=== PATIENT | female | born 1970 | race Caucasian/White ===

== ENCOUNTER 2019-09-12 21:08 | Emergency (ER) | payer SELFPAY ==
[2019-09-12] MEDS ORDERED: ONDANSETRON 4 MG/2 ML VIAL ONE (21:43)
[2019-09-12] MEDS ORDERED: NA CHLORIDE 0.9% 1,000 ML ONE (21:43)
[2019-09-12] MEDS ORDERED: FENTANYL CITR 100 MCG/2 ML ONE (22:13)
[2019-09-12 22:28] LABS: Absolute Lymphocytes (CBC) 2.3 K/uL (0.7-4.9); Basophils % 2.3 % (0-1.3); Hematocrit 46.3 % (36.0-45.0); Lymphocytes % 35.1 % (15.3-44.8); MPV 9.9 fL (7.6-11.3); RBC Red Blood Cell Count 4.62 M/uL (3.86-4.86)
[2019-09-12 22:40] LABS: Albumin 4.3 g/dL (3.4-5.0); Bilirubin Direct 0.5 mg/dL (0-0.2); Bilirubin Total 1.1 mg/dL (0.2-1.0); Protein, Total 9.3 g/dL (6.4-8.2)
[2019-09-12 22:43] LABS: Potassium 2.9 mmol/L (3.5-5.1)
[2019-09-12] MEDS ORDERED: POTASSIUM 25 MEQ EFFERV TAB ONE (23:19)
[2019-09-12] MEDS ORDERED: PROMETHAZINE 25 MG/ML VIAL ONE (23:44)
[2019-09-13] MEDS ORDERED: FENTANYL CITR 100 MCG/2 ML ONE (01:04)
--- NOTE | 2019-09-13 01:35 | EDPHYS ---
Physician Documentation [facility] Name: Charmaine Hughes Age: 49 yrs Sex: Female : 1970 Arrival Date: 09/12/2019 Time: 21:09 Bed 7 Private MD: ED Physician Enrike Moya HPI: 09/12 22:04 This 49 yrs old Female presents to ER via Wheelchair with complaints of tw4 Vomiting. 22:04 The patient presents to the emergency department with nausea, that is mild, vomiting. tw4 Onset: The symptoms/episode began/occurred 3 day(s) ago. Possible causes: unknown. Severity of symptoms: At their worst the symptoms were mild in the emergency department the symptoms are unchanged. The patient has not experienced similar symptoms in the past. 22:04 The patient presents to the emergency department with diarrhea. The symptoms are tw4 aggravated by nothing. The symptoms are alleviated by nothing. 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 aj1 Historical: - Allergies: 21:17 Sulfa (Sulfonamide Antibiotics); aj1 22:52 Morphine; jb4 - Home Meds: 21:17 Cymbalta 60 mg Oral cpDR 1 cap once daily [Active]; dicyclomine 10 mg Oral cap 1 cap 3 aj1 times per day [Active]; estradiol 2 mg Oral tab 1 tab once daily [Active]; folic acid 1 mg Oral tab 1 tab once daily [Active]; levothyroxine 100 mcg tab 1 tab once daily [Active]; Prilosec 40 mg Oral cpDR 1 cap once daily [Active]; propranolol 10 mg Oral tab daily [Active]; - PMHx: 21:17 fatty liver disease; Hypothyroidism; aj1 - PSHx: 21:17 Gastric Bypass; Hysterectomy; aj1 - Immunization history:: Flu vaccine is not up to date. - Social history:: Smoking status: Patient/guardian denies using tobacco. - Ebola Screening: : Patient denies travel to an Ebola-affected area in the 21 days before illness onset. ROS: 22:04 Constitutional: Negative for fever, chills, and weight loss, Cardiovascular: Negative tw4 for chest pain, palpitations, and edema, Respiratory: Negative for shortness of breath, cough, wheezing, and pleuritic chest pain, Back: Negative for injury and pain, MS/Extremity: Negative for injury and deformity, Skin: Negative for injury, rash, and discoloration. 22:04 Abdomen/GI: Positive for abdominal pain, nausea and vomiting, nausea, vomiting, and diarrhea, nausea, vomiting, diarrhea. Exam: 22:04 Head/Face: Normocephalic, atraumatic. Chest/axilla: Normal chest wall appearance and tw4 motion. Nontender with no deformity. No lesions are appreciated. Cardiovascular: Regular rate and rhythm with a normal S1 and S2. No gallops, murmurs, or rubs. Normal PMI, no JVD. No pulse deficits. Respiratory: Lungs have equal breath sounds bilaterally, clear to auscultation and percussion. No rales, rhonchi or wheezes noted. No increased work of breathing, no retractions or nasal flaring. 22:04 Back: No spinal tenderness. No costovertebral tenderness. Full range of motion. Skin: Warm, dry with normal turgor. Normal color with no rashes, no lesions, and no evidence of cellulitis. MS/ Extremity: Pulses equal, no cyanosis. Neurovascular intact. Full, normal range of motion. Neuro: Awake and alert, GCS 15, oriented to person, place, time, and situation. Cranial nerves II-XII grossly intact. Motor strength 5/5 in all extremities. Sensory grossly intact. Cerebellar exam normal. Normal gait. 22:04 Constitutional: The patient appears in obvious distress, moderately distressed. 22:04 Abdomen/GI: Inspection: abdomen appears normal, Bowel sounds: diminished, Palpation: moderate abdominal tenderness, in the epigastric area. Vital Signs: 21:17 BP 109 / 77; Pulse 124; Resp 20; Temp 97.0; Pulse Ox 97% on R/A; Weight 90.72 kg (R); aj1 Height 5 ft. 10 in. (177.80 cm) (R); Pain 7/10; 22:15 BP 111 / 73; Pulse 109; Resp 16; Pulse Ox 99% on R/A; jb4 22:45 BP 106 / 61; Pulse 102; Resp 16; Pulse Ox 98% on R/A; jb4 09/13 00:00 BP 125 / 98; Pulse 107; Resp 16; Pulse Ox 97% on R/A; jb4 00:30 BP 127 / 86; Pulse 109; Resp 16; Pulse Ox 100% on R/A; jb4 02:00 BP 110 / 75; Pulse 112; Resp 18; Pulse Ox 98% on R/A; jb4 03:00 BP 132 / 94; Pulse 117; Resp 16; Pulse Ox 97% on R/A; jb4 09/12 21:17 Body Mass Index 28.70 (90.72 kg, 177.80 cm) aj1 MDM: 09/12 21:23 Patient medically screened. tw4 09/14 01:52 Differential diagnosis: Nonspecific abd pain, gastritis, cholecystitis. Data reviewed: tw4 vital signs, nurses notes. Data interpreted: Pulse oximetry: Interpretation: normal. Counseling: I had a detailed discussion with the patient and/or guardian regarding: the historical points, exam findings, and any diagnostic results supporting the discharge/admit diagnosis, lab results, radiology results. Response to treatment: the patient's symptoms have mildly improved after treatment, and as a result, I will admit patient. Special discussion:. 09/12 21:23 Order name: Basic Metabolic Panel; Complete Time: 22:48 tw4 09/12 22:48 Interpretation: Normal except: NA 132; CL 93; K 2.9; CO2 19; BUN 2; GFR 74. tw4 09/12 21:23 Order name: CBC with Diff; Complete Time: 22:48 tw4 09/12 22:48 Interpretation: Normal except: HGB 15.8; HCT 46.3; MCV 100.1; RDW 16.7. tw4 09/12 21:23 Order name: Creatinine for Radiology; Complete Time: 22:48 tw4 09/12 22:48 Interpretation: Within normal limits: CRE 0.84. tw4 09/12 21:23 Order name: Hepatic Function; Complete Time: 22:48 tw4 09/12 22:48 Interpretation: Normal except: AST 351; ALT 93; ALK 279; BILIT 1.1; BILID 0.5; TP 9.3; tw4 GLOB 5.0; A/G 0.9. 09/12 21:23 Order name: Lipase; Complete Time: 22:48 tw4 09/12 22:48 Interpretation: Normal except: LIP 809. tw4 09/12 23:25 Order name: Abdomen EDCO 09/12 21:23 Order name: IV Saline Lock; Complete Time: 21:37 tw4 09/12 21:23 Order name: Labs collected and sent; Complete Time: 21:37 tw4 Administered Medications: 09/12 22:07 Drug: NS 0.9% 1000 ml Route: IV; Rate: 1 bolus; Site: right antecubital; 4 09/13 00:00 Follow up: Response: No adverse reaction; IV Status: Completed infusion; IV Intake: jb4 1000ml 09/12 22:07 Drug: Zofran 4 mg Route: IVP; Site: right antecubital; 4 22:30 Follow up: Response: No adverse reaction; Nausea is decreased [facility] 22:19 Drug: fentaNYL (PF) 25 mcg Route: IVP; Site: right antecubital; 4 22:25 Follow up: Response: No adverse reaction; Pain is decreased; RASS: Alert and Calm (0) [facility] 23:49 Drug: Phenergan 25 mg Route: IM; Site: right gluteus; [facility] 09/13 00:15 Follow up: Response: No adverse reaction; Nausea is decreased [facility] 01:01 Drug: fentaNYL (PF) 50 mcg {Note: RASS 0.} Route: IVP; Site: left antecubital; 01:30 Follow up: Response: No adverse reaction; Pain is decreased; RASS: Alert and Calm (0) [facility] 01:44 Not Given (Patient Refused): Potassium Effervescent Tablet 50 mEq PO once; dissolve in jb 4 ounces of water or juice 02:09 Drug: Potassium Chloride 20 mEq Route: IV; Rate: calculated rate; Site: left 4 antecubital; 03:02 Follow up: Response: No adverse reaction; IV Status: Infusion continued upon transfer [facility] 02:09 Drug: NS 0.9% 1000 ml Route: IV; Rate: 1 bolus; Site: left antecubital; [facility] 03:02 Follow up: Response: No adverse reaction; IV Status: Infusion continued upon transfer [facility] 02:55 Drug: Dilaudid 1 mg {Note: Rass score 0.} Route: IVP; Site: left antecubital; [facility] 03:10 Follow up: Response: No adverse reaction; Pain is decreased; RASS: Alert and Calm (0) [facility] Disposition: 09/13/19 01:34 Transfer ordered to [facility]. Diagnosis are Acute pancreatitis, Pseudocyst of pancreas. - Reason for transfer: Higher level of care. - Accepting physician is Dr Green. - Condition is Stable. - Problem is new. - Symptoms are unchanged. Signatures: Dispatcher [employer] [facility] Shanti Vargas, RN RN aj1 Althea Block RN RN bb Norris Martinez RN RN jb4 Enrike Moya MD MD tw4 Corrections: (The following items were deleted from the chart) 09/12 23:25 21:54 Abdomen Pelvis W Con+CT.RAD.BRZ ordered. [facility] 09/13 03:20 01:34 09/13/2019 01:34 Transfer ordered to [facility]. Diagnosis is jb4 Acute pancreatitis; Pseudocyst of pancreas. Reason for transfer: Higher level of care. Accepting physician is Dr Green. Condition is Stable. Problem is new. Symptoms are unchanged. tw4
--- NOTE | 2019-09-13 01:35 | ER ---
Nurse's Notes [facility] Name: Charmaine Hughes Age: 49 yrs Sex: Female : 1970 Arrival Date: 09/12/2019 Time: 21:09 Bed 7 Private MD: Diagnosis: Acute pancreatitis;Pseudocyst of pancreas Presentation: 09/12 21:15 Presenting complaint: Patient states: "For the last 3 days I've been unable to eat, aj1 I've been throwing up a lot, a little bit of diarrhea. I'm feeling very very weak and having a lot of stomach pain" Denies fever. Transition of care: patient was not received from another setting of care. Onset of symptoms was September 12, 2019. Risk Assessment: Do you want to hurt yourself or someone else? Patient reports no desire to harm self or others. Initial Sepsis Screen: Does the patient meet any 2 criteria? HR > 90 bpm. No. Patient's initial sepsis screen is negative. Does the patient have a suspected source of infection? Yes: Acute abdominal pain. Care prior to arrival: None. 21:15 Method Of Arrival: Wheelchair aj1 21:15 Acuity: ALICE 3 aj1 Triage Assessment: 21:17 General: Appears in no apparent distress. uncomfortable, Behavior is calm, cooperative, aj1 appropriate for age. Pain: Complains of pain in right lower quadrant and left lower quadrant Pain currently is 7 out of 10 on a pain scale. Neuro: Level of Consciousness is awake, alert, obeys commands. Cardiovascular: Patient's skin is warm and dry. Respiratory: Airway is patent Respiratory effort is even, unlabored, Respiratory pattern is regular, symmetrical. GI: Reports diarrhea, nausea, vomiting. 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 aj1 Historical: - Allergies: 21:17 Sulfa (Sulfonamide Antibiotics); aj1 22:52 Morphine; jb4 - Home Meds: 21:17 Cymbalta 60 mg Oral cpDR 1 cap once daily [Active]; dicyclomine 10 mg Oral cap 1 cap 3 aj1 times per day [Active]; estradiol 2 mg Oral tab 1 tab once daily [Active]; folic acid 1 mg Oral tab 1 tab once daily [Active]; levothyroxine 100 mcg tab 1 tab once daily [Active]; Prilosec 40 mg Oral cpDR 1 cap once daily [Active]; propranolol 10 mg Oral tab daily [Active]; - PMHx: 21:17 fatty liver disease; Hypothyroidism; aj1 - PSHx: 21:17 Gastric Bypass; Hysterectomy; aj1 - Immunization history:: Flu vaccine is not up to date. - Social history:: Smoking status: Patient/guardian denies using tobacco. - Ebola Screening: : Patient denies travel to an Ebola-affected area in the 21 days before illness onset. Screenin:33 Abuse screen: Denies threats or abuse. Nutritional screening: No deficits noted. jb4 Tuberculosis screening: No symptoms or risk factors identified. Fall Risk None identified. Assessment: 21:33 General: Appears in no apparent distress. uncomfortable, Behavior is cooperative, jb4 appropriate for age, anxious. Pain: Complains of pain in abdomen Pain does not radiate. Pain currently is 7 out of 10 on a pain scale. Quality of pain is described as burning, aching, crampy, stabbing, Pain began 2-3 days ago. Is continuous. Neuro: Level of Consciousness is awake, alert, obeys commands, Oriented to person, place, time, situation. Cardiovascular: Patient's skin is warm and dry. Respiratory: Airway is patent Respiratory effort is even, unlabored, Respiratory pattern is regular, symmetrical. GI: Abdomen is non-distended, obese, Bowel sounds present X 4 quads. Abd is soft and non tender X 4 quads. Reports lower abdominal pain, cramping, nausea, vomiting, Patient currently denies constipation, diarrhea. : No deficits noted. No signs and/or symptoms were reported regarding the genitourinary system. EENT: No deficits noted. No signs and/or symptoms were reported regarding the EENT system. Derm: Skin is intact, Skin is pink, warm \\T\\ dry. Musculoskeletal: Circulation, motion, and sensation intact. Range of motion: intact in all extremities. 22:30 Reassessment: Patient appears in no apparent distress at this time. Patient and/or jb4 family updated on plan of care and expected duration. Pain level reassessed. Patient is alert, oriented x 3, equal unlabored respirations, skin warm/dry/pink. 23:31 Reassessment: Patient appears in no apparent distress at this time. Patient and/or jb4 family updated on plan of care and expected duration. Pain level reassessed. Patient is alert, oriented x 3, equal unlabored respirations, skin warm/dry/pink. PT to CT. 09/13 01:18 Reassessment: Dr Moya at bedside for discussion of findings and recommendations pt to bb be transferred to another hospital for higher level of care pt verbalized understanding of and agrees to plan of care. Pt is A\\T\\O x 4, resp unlabored, IV site intact, patent with fluids infusing. 02:00 Reassessment: Patient appears in no apparent distress at this time. Patient and/or jb4 family updated on plan of care and expected duration. Pain level reassessed. Patient is alert, oriented x 3, equal unlabored respirations, skin warm/dry/pink. 03:13 Reassessment: Patient appears in no apparent distress at this time. Patient and/or jb4 family updated on plan of care and expected duration. Pain level reassessed. Patient is alert, oriented x 3, equal unlabored respirations, skin warm/dry/pink. Pt transported to receiving facility via EMS. Vital Signs: 09/12 21:17 BP 109 / 77; Pulse 124; Resp 20; Temp 97.0; Pulse Ox 97% on R/A; Weight 90.72 kg (R); aj1 Height 5 ft. 10 in. (177.80 cm) (R); Pain 7/10; 22:15 BP 111 / 73; Pulse 109; Resp 16; Pulse Ox 99% on R/A; jb4 22:45 BP 106 / 61; Pulse 102; Resp 16; Pulse Ox 98% on R/A; jb4 09/13 00:00 BP 125 / 98; Pulse 107; Resp 16; Pulse Ox 97% on R/A; jb4 00:30 BP 127 / 86; Pulse 109; Resp 16; Pulse Ox 100% on R/A; jb4 02:00 BP 110 / 75; Pulse 112; Resp 18; Pulse Ox 98% on R/A; jb4 03:00 BP 132 / 94; Pulse 117; Resp 16; Pulse Ox 97% on R/A; jb4 09/12 21:17 Body Mass Index 28.70 (90.72 kg, 177.80 cm) aj1 ED Course: 09/12 21:09 Patient arrived in ED. ag3 21:16 Triage completed. aj1 21:17 Arm band placed on Patient placed in an exam room. aj1 21:21 Norris Martinez, RN is Primary Nurse. jb4 21:22 Enrike Moya MD is Attending Physician. tw4 21:33 Patient has correct armband on for positive identification. Placed in gown. Bed in low jb4 position. Call light in reach. Side rails up X 1. Pulse ox on. NIBP on. 22:01 Initial lab(s) drawn, by me, sent to lab. Inserted saline lock: 20 gauge in right bb antecubital area, using aseptic technique. Blood collected. 22:03 Basic Metabolic Panel Sent. ds4 22:04 CBC with Diff Sent. ds4 22:04 Creatinine for Radiology Sent. ds4 22:04 Hepatic Function Sent. ds4 22:04 Lipase Sent. ds4 22:34 Radiology exam delayed due to lab results not completed at this time. (BUN/Creatinine). mw3 22:50 Notified ED physician of a critical lab result(s). 2.9 K+, and [address] Moya ak1 notified. 23:10 Radiology exam delayed due to IV insertion attempt and/or patient not having mw3 appropriate IV at this time. 23:56 Abdomen In Process Unspecified. EDMS 09/13 01:02 Inserted saline lock: 18 gauge in left antecubital area, using aseptic technique. bb 01:20 Diet: Patient given ice chips. bb 03:13 No provider procedures requiring assistance completed. Patient transferred, IV remains jb4 in place. Administered Medications: 09/12 22:07 Drug: NS 0.9% 1000 ml Route: IV; Rate: 1 bolus; Site: right antecubital; jb4 09/13 00:00 Follow up: Response: No adverse reaction; IV Status: Completed infusion; IV Intake: jb4 1000ml 09/12 22:07 Drug: Zofran 4 mg Route: IVP; Site: right antecubital; jb4 22:30 Follow up: Response: No adverse reaction; Nausea is decreased jb4 22:19 Drug: fentaNYL (PF) 25 mcg Route: IVP; Site: right antecubital; jb4 22:25 Follow up: Response: No adverse reaction; Pain is decreased; RASS: Alert and Calm (0) jb4 23:49 Drug: Phenergan 25 mg Route: IM; Site: right gluteus; jb4 09/13 00:15 Follow up: Response: No adverse reaction; Nausea is decreased jb4 01:01 Drug: fentaNYL (PF) 50 mcg {Note: RASS 0.} Route: IVP; Site: left antecubital; bb 01:30 Follow up: Response: No adverse reaction; Pain is decreased; RASS: Alert and Calm (0) jb4 01:44 Not Given (Patient Refused): Potassium Effervescent Tablet 50 mEq PO once; dissolve in jb4 4 ounces of water or juice 02:09 Drug: Potassium Chloride 20 mEq Route: IV; Rate: calculated rate; Site: left jb antecubital; 03:02 Follow up: Response: No adverse reaction; IV Status: Infusion continued upon transfer jb4 02:09 Drug: NS 0.9% 1000 ml Route: IV; Rate: 1 bolus; Site: left antecubital; jb4 03:02 Follow up: Response: No adverse reaction; IV Status: Infusion continued upon transfer jb4 02:55 Drug: Dilaudid 1 mg {Note: Rass score 0.} Route: IVP; Site: left antecubital; jb4 03:10 Follow up: Response: No adverse reaction; Pain is decreased; RASS: Alert and Calm (0) jb4 Intake: 00:00 IV: 1000ml; Total: 1000ml. jb4 Outcome: 01:34 ER care complete, transfer ordered by . tw4 03:13 Transferred by [facility] to [facility], Transfer form completed. jb4 X-rays sent w/ patient. 03:13 Condition: stable 03:13 Discharge instructions given to patient, Instructed on the need for transfer, Demonstrated understanding of instructions. 03:20 Patient left the ED. jb4 Signatures: Dispatcher [employer] EDMS Shanti Vargas RN RN aj1 Althea Block RN RN Adan Badillo ds4 Ana M Evans RN RN ak1 Norris Martinez RN RN jb4 Enrike Moya MD MD tw4 Ana Post 3 Dulce Maria Banks 3
[2019-09-13] MEDS ORDERED: KCL 20 MEQ/100 mL IVPB 20 MEQ/100 ML BAG IV ONE (01:57)
[2019-09-13] MEDS ORDERED: NA CHLORIDE 0.9% 1,000 ML ONE (01:57)
[2019-09-13] MEDS ORDERED: HYDROMORPHONE HCL 1 MG/ML INJ ONE (02:48)
[2019-09-13 03:38] VITALS: TEMP 97
[2019-09-13 03:44] VITALS: BP 132/94; O2SAT 97
--- NOTE | 2019-09-13 11:36 | RAD REPORT ---
EXAM DESCRIPTION: CT ABDOMEN AND PELVIS WITHOUT CONTRAST CLINICAL HISTORY: Abdominal pain, nausea and vomiting. COMPARISON: Report from CT abdomen and pelvis with contrast 08/09/2019. TECHNIQUE: Axial unenhanced CT imaging of the abdomen and pelvis performed. Reformatted coronal and sagittal images reviewed. A dose reduction technique was utilized with automated exposure control according to patient size. FINDINGS: Heart is normal in size. There are very faint groundglass densities in the posterior media l right lower lobe subpleural parenchyma. No pleural fluid. The liver is enlarged to approximately 21 cm. There is significant decreased attenuation due to fatty infiltration. There is no liver mass or biliary dilatation. Gallbladder has been resected. Normal sp ivan and pancreas. Normal adrenal glands and kidneys. Aorta and inferior vena cava are normal in caliber. No retroperitoneal lymphadenopathy. There is evid ence of gastric bypass. There is a 6.6 x 4.8 x 3.9 cm well-circumscribed fluid collection within the left upper abdomen posterior to the proximal stomach adjacent to the spleen. No adjacent edema there is focal dilatation of a small bowel segment in the left abdomen up to 3.5 cm at the distal bypass an astomotic site without obstruction. Remaining small bowel loops appear normal. The appendix is surgic ally absent. Unremarkable colon. No mesenteric adenopathy. No ascites or free air. There is a ventral abdominal hernia mesh without recurrent hernia. The bladder appears normal. Uterus is surgically absent. No pelvic free fluid or adenopathy. There is a slight levoconvex lumbar curve. Mild L5/S1 diffuse disc bulge. Intact bony pelvis. Normal hips. IMPRESSION: 1. Status post gastric bypass. There is a 6.6 cm simple well-circumscribed fluid collect ion in the left upper abdomen posterior to the proximal excluded stomach. Differential includes posto perative seroma, pseudocyst, duplication cyst. No inflammatory changes to suggest an abscess. 2. Hepatomegaly with moderate steatosis. 3. Mild L5-S1 diffuse disc bulge. 4. Very faint subpleural groundglass densities posterior medial right lower lobe could represent a sm all focus of early pneumonitis. Electronically signed by: Mercedes Roy DO 09/13/2019 12:28 AM CDT Due to temporary technical issues with the PACS/Fluency reporting system, reports are being signed by the in house radiologist as a courtesy to ensure prompt reporting. The interpreting radiologist is f ully responsible for the content of the report.
== END 2019-09-13 03:20 | disposition short-term general hospital (02) ==
LOC: ER 21:08
DX: K85.90 Acute pancreatitis without necrosis or infection, unspecified (principal); K86.3 Pseudocyst of pancreas; Z88.2 Allergy status to sulfonamides; Z88.6 Allergy status to analgesic agent; E03.9 Hypothyroidism, unspecified
CPT/HCPCS: 36415; 74176; 80048; 80076; 83690; 85025; 96361; 96365; 96372; 96375; 99285; J1170; J2405; J2550; J3010; J7030

== ENCOUNTER 2019-10-15 04:35 | Emergency (ER) | payer SELFPAY ==
--- OUTSIDE RECORDS SUMMARY | 2019-10-15 04:37 | XMS REPORT ---
:1970 Author Organization [facility] Address [address] [place] [address] Care Team Providers Name Role Phone BRIAN GUPTA Unavailable Unavailable Problems This patient has no known problems. Allergies, Adverse Reactions, Alerts This patient has no known allergies or adverse reactions. Medications This patient has no known medications. Results Test Description Test Time Test Comments Text Results Atomic Results Result Comments MAGNESIUM 2019-09-15 06:09:00 Test Item Value Reference Range Comments MAGNESIUM (BEAKER) (test topv=525) 1.9 mg/dL 1.6-2.6 BASIC METABOLIC [id number] 06:09:00 Test Item Value Reference Range Comments SODIUM (BEAKER) (test 134 meq/L 136-145 fffs=346) POTASSIUM (BEAKER) (test 3.2 meq/L 3.5-5.1 uwrg=598) CHLORIDE (BEAKER) (test 95 meq/L 98-107 jslh=598) CO2 (BEAKER) (test 27 meq/L 22-29 rwsu=057) BLOOD UREA NITROGEN 3 mg/dL 7-21 (BEAKER) (test wzpe=341) CREATININE (BEAKER) (test 0.75 mg/dL 0.57-1.25 rsrc=711) GLUCOSE RANDOM (BEAKER) 94 mg/dL 70-105 (test pkqo=048) CALCIUM (BEAKER) (test 9.4 mg/dL 8.4-10.2 kgtq=356) EGFR (BEAKER) (test 82 mL/min/1.73 sq m ESTIMATED GFR IS NOT rfir=9636) ACCURATE CREATININE CLEARANCE IN PREDICTING GLOMERULAR FILTRATION RATE. ESTIMATED GFR IS NOT APPLICABLE FOR DIALYSIS PATIENTS. HEPATIC FUNCTION [id number] 06:09:00 Test Item Value Reference Range Comments TOTAL PROTEIN (BEAKER) (test fdyy=773) 7.2 gm/dL 6.0-8.3 ALBUMIN (BEAKER) (test oium=2816) 3.8 g/dL 3.5-5.0 BILIRUBIN TOTAL (BEAKER) (test psfs=558) 1.7 mg/dL 0.2-1.2 BILIRUBIN DIRECT (BEAKER) (test zukb=977) 1.0 mg/dL 0.1-0.5 ALKALINE PHOSPHATASE (BEAKER) (test gzdu=234) 174 U/L 40-150 AST (SGOT) (BEAKER) (test fjdq=921) 124 U/L 5-34 ALT (SGPT) (BEAKER) (test eapt=214) 41 U/L 6-55 MR, ABDOMEN, [id number] 23:05:00FINAL REPORT MRI of the abdomen, MRCP. CLINICAL HISTORY: Epigastric pain. Concern for pancreatic pseudocyst. MRCP to evaluate the rectal hyperbilirubinemia. COMPARISON STUDY: Ultrasound dated September 14, 2019. TECHNIQUE: Multiplanar, multisequence images of the abdomen were acquired both pre and post administration of intravenous gadolinium. 3-dimensional reconstructions were acquired and utilized by the dictating radiologist at the time of interpretation. FINDINGS: No pleuraleffusion is seen. The liver is markedly fatty in nature. Post administration of intravenous gadolinium in a dynamic fashion, no suspicious enhancing masses. However, portions of the liver are not imaged on the dynamic scan as a pancreatic protocol was performed. The portal vein is patent measuring 8 mm. The spleen, kidneys and adrenal glands are unremarkable. No focal pancreatic abnormality is seen. The tail is short in caliber. There is no evidence of pancreatitis, pancreatic mass or pancreatic pseudocyst. There are no dilated loops of bowel seen to suggest obstruction. No ascites is seen. There is no suspicious adenopathy. The aorta is normal in caliber. MRCP demonstrates postcholecystectomy changes. The CBD is normal in caliber measuring 5 mm. No choledocholithiasis is seen. No pancreatic ductal dilatation is identified. The visualized osseous structures demonstrate a levorotoscoliosis of thelumbar spine. IMPRESSION:1. Markedly fatty liver.2. Short pancreatic tail. No other focal pancreaticabnormality. No pseudocyst seen.3. Status post cholecystectomy with no evidence of biliary or pancreatic ductal dilatation. Signed: Yoshi Sesay MDReport Verified Date/Time: 2018 23:05:19 Reading Location: [facility] B1 [id number] Consult Reading Room [id number] 06:51:00 Test Item Value Reference Range Comments MAGNESIUM (BEAKER) (test ajqx=662) 2.0 mg/dL 1.6-2.6 BASIC METABOLIC [id number] 06:51:00 Test Item Value Reference Range Comments SODIUM (BEAKER) (test 134 meq/L 136-145 ivgc=312) POTASSIUM (BEAKER) (test 3.3 meq/L 3.5-5.1 upmg=958) CHLORIDE (BEAKER) (test 93 meq/L 98-107 arfb=917) CO2 (BEAKER) (test 27 meq/L 22-29 fxke=459) BLOOD UREA NITROGEN 3 mg/dL 7-21 (BEAKER) (test tukq=811) CREATININE (BEAKER) (test 0.81 mg/dL 0.57-1.25 rjbl=373) GLUCOSE RANDOM (BEAKER) 99 mg/dL 70-105 (test crqc=619) CALCIUM (BEAKER) (test 9.2 mg/dL 8.4-10.2 vimd=495) EGFR (BEAKER) (test 75 mL/min/1.73 sq m ESTIMATED GFR IS NOT qiur=2698) ACCURATE CREATININE CLEARANCE IN PREDICTING GLOMERULAR FILTRATION RATE. ESTIMATED GFR IS NOT APPLICABLE FOR DIALYSIS PATIENTS. LIPID [id number] 06:51:00 Test Item Value Reference Range Comments TRIGLYCERIDES (BEAKER) (test zrix=418) 90 mg/dL CHOLESTEROL (BEAKER) (test tahz=805) 227 mg/dL HDL CHOLESTEROL (BEAKER) (test hfis=807) 85 mg/dL LDL CHOLESTEROL CALCULATED (BEAKER) (test 124 mg/dL sihh=866) Triglyceride Reference Range: Low Risk <150 Borderline 150- 199 High Risk 200-499 Very High Risk >=500Cholesterol Reference Range: Low Risk <200 Borderline 200-239 High Risk > 240HDL Cholesterol Reference Range: Low Risk >=60 High Risk <40LDL Cholesterol Reference Range: Optimal <100 Near Optimal 100-129 Borderline 130-159 High 160-189 Very High >=190HEPATIC FUNCTION [id number] 06:51:00 Test Item Value Reference Range Comments TOTAL PROTEIN (BEAKER) (test vzcq=447) 7.0 gm/dL 6.0-8.3 ALBUMIN (BEAKER) (test deuj=5063) 3.9 g/dL 3.5-5.0 BILIRUBIN TOTAL (BEAKER) (test nbmc=315) 2.2 mg/dL 0.2-1.2 BILIRUBIN DIRECT (BEAKER) (test ujkg=750) 1.4 mg/dL 0.1-0.5 ALKALINE PHOSPHATASE (BEAKER) (test avni=116) 188 U/L 40-150 AST (SGOT) (BEAKER) (test kevk=299) 159 U/L 5-34 ALT (SGPT) (BEAKER) (test igyr=968) 52 U/L 6-55 CBC (HEMOGRAM ONLY)2019-09-14 05:02:00 Test Item Value Reference Range Comments WHITE BLOOD CELL COUNT (BEAKER) (test qiup=976) 5.5 K/ L 3.5-10.5 RED BLOOD CELL COUNT (BEAKER) (test fksx=885) 3.79 M/ L 3.93-5.22 HEMOGLOBIN (BEAKER) (test ejar=278) 12.6 GM/DL 11.2-15.7 HEMATOCRIT (BEAKER) (test tqrq=984) 37.7 % 34.1-44.9 MEAN CORPUSCULAR VOLUME (BEAKER) (test mnvw=442) 99.5 fL 79.4-94.8 MEAN CORPUSCULAR HEMOGLOBIN (BEAKER) (test 33.2 pg 25.6-32.2 eizb=105) MEAN CORPUSCULAR HEMOGLOBIN CONC (BEAKER) (test 33.4 GM/DL 32.2-35.5 xdns=885) RED CELL DISTRIBUTION WIDTH (BEAKER) (test 15.3 % 11.7-14.4 vrbw=725) PLATELET COUNT (BEAKER) (test trah=813) 140 K/CU MM 150-450 MEAN PLATELET VOLUME (BEAKER) (test kmuc=466) 11.8 fL 9.4-12.3 NUCLEATED RED BLOOD CELLS (BEAKER) (test 0 /100 WBC 0-0 biyn=605) U/S, ABDOMINAL, [id number] 04:05:00Reason for exam:->Elevated LFT' sFINAL REPORT History: Elevated LFTs Abdominal ultrasound dated 09/14/2019 Comparison: None Comment: Real-time transabdominal ultrasound of the abdomen was performed. Liver: 16.5 cm , upper limits of normal. Elevated parenchymal echogenicity, suggesting steatosis. No focal lesions. Gallbladder: Absent. Biliary tree: No intrahepatic ductal dilatation. CBD: 6 mm. MPV: 9 mm Spleen: Normal size and echogenicity. Pancreas: Not well- seen. Right kidney: 11.6 x 5.3 x 4.9 cm. Normalechogenicity.Left kidney: 12.2 x 5.8 x 5.2 cm. Normal echogenicity. No ascites is present in the abdomen. The visualized abdominal aorta is normal in caliber. The IVC and Hepatic veins are patent. Impression: Hepatic steatosis. The liver is prominent in size. Previous cholecystectomy. Signed: Sandra Lyn MDReport Verified Date/Time: 04:05:19 Electronically signed by: SANDRA LYN M.D. on 2018 04:05 [id number] 07:47:00 Test Item Value Reference Range Comments MAGNESIUM (BEAKER) (test rcrc=804) 1.7 mg/dL 1.6-2.6 BASIC METABOLIC [id number] 07:47:00 Test Item Value Reference Range Comments SODIUM (BEAKER) (test 132 meq/L 136-145 kzsu=600) POTASSIUM (BEAKER) (test 3.3 meq/L 3.5-5.1 dtyn=229) CHLORIDE (BEAKER) (test 96 meq/L 98-107 dsru=956) CO2 (BEAKER) (test 15 meq/L 22-29 mbch=372) BLOOD UREA NITROGEN 3 mg/dL 7-21 (BEAKER) (test hsci=482) CREATININE (BEAKER) (test 0.66 mg/dL 0.57-1.25 ttes=124) GLUCOSE RANDOM (BEAKER) 96 mg/dL 70-105 (test jbhf=943) CALCIUM (BEAKER) (test 8.3 mg/dL 8.4-10.2 clad=349) EGFR (BEAKER) (test 95 mL/min/1.73 sq m ESTIMATED GFR IS NOT cvlg=1219) ACCURATE CREATININE CLEARANCE IN PREDICTING GLOMERULAR FILTRATION RATE. ESTIMATED GFR IS NOT APPLICABLE FOR DIALYSIS PATIENTS. HEPATIC FUNCTION [id number] 07:47:00 Test Item Value Reference Range Comments TOTAL PROTEIN (BEAKER) (test ykjf=983) 7.4 gm/dL 6.0-8.3 ALBUMIN (BEAKER) (test rokk=2593) 3.9 g/dL 3.5-5.0 BILIRUBIN TOTAL (BEAKER) (test drey=216) 1.6 mg/dL 0.2-1.2 BILIRUBIN DIRECT (BEAKER) (test dzoz=019) 1.1 mg/dL 0.1-0.5 ALKALINE PHOSPHATASE (BEAKER) (test nxaq=262) 210 U/L 40-150 AST (SGOT) (BEAKER) (test dtsf=043) 195 U/L 5-34 ALT (SGPT) (BEAKER) (test tcgn=386) 55 U/L 6-55 [id number] 07:47:00 Test Item Value Reference Range Comments LIPASE (BEAKER) (test pbmh=384) 186 U/L 8-78 HEPATITIS PANEL, [id number] 07:29:00 Test Item Value Reference Range Comments HEPATITIS A IGM ANTIBODY (BEAKER) (test Nonreactive Nonreactive riob=034) HEPATITIS B CORE IGM ANTIBODY (BEAKER) (test Nonreactive Nonreactive mpjj=967) HEPATITIS C ANTIBODY (BEAKER) (test hoiw=452) Nonreactive Nonreactive HEPATITIS B SURFACE ANTIGEN (2) (BEAKER) (test Nonreactive Nonreactive orsq=0892) CBC W/PLT COUNT & AUTO [id number] 06:45:00 Test Item Value Reference Range Comments WHITE BLOOD CELL COUNT (BEAKER) (test jukx=385) 7.6 K/ L 3.5-10.5 RED BLOOD CELL COUNT (BEAKER) (test ecmr=215) 3.93 M/ L 3.93-5.22 HEMOGLOBIN (BEAKER) (test gllu=874) 13.1 GM/DL 11.2-15.7 HEMATOCRIT (BEAKER) (test josd=670) 38.8 % 34.1-44.9 MEAN CORPUSCULAR VOLUME (BEAKER) (test pymd=899) 98.7 fL 79.4-94.8 MEAN CORPUSCULAR HEMOGLOBIN (BEAKER) (test 33.3 pg 25.6-32.2 kgdw=905) MEAN CORPUSCULAR HEMOGLOBIN CONC (BEAKER) (test 33.8 GM/DL 32.2-35.5 rwpo=171) RED CELL DISTRIBUTION WIDTH (BEAKER) (test 15.7 % 11.7-14.4 xxif=468) PLATELET COUNT (BEAKER) (test szix=856) 169 K/CU MM 150-450 MEAN PLATELET VOLUME (BEAKER) (test zjnc=817) 10.8 fL 9.4-12.3 NUCLEATED RED BLOOD CELLS (BEAKER) (test 0 /100 WBC 0-0 auro=914) NEUTROPHILS RELATIVE PERCENT (BEAKER) (test 62 % akha=025) LYMPHOCYTES RELATIVE PERCENT (BEAKER) (test 23 % dbtu=994) MONOCYTES RELATIVE PERCENT (BEAKER) (test 13 % rlix=662) EOSINOPHILS RELATIVE PERCENT (BEAKER) (test 1 % zjdt=421) BASOPHILS RELATIVE PERCENT (BEAKER) (test 1 % iykb=676) NEUTROPHILS ABSOLUTE COUNT (BEAKER) (test 4.72 K/ L 1.56-6.13 iuja=859) LYMPHOCYTES ABSOLUTE COUNT (BEAKER) (test 1.73 K/ L 1.18-3.74 lwpw=393) MONOCYTES ABSOLUTE COUNT (BEAKER) (test 0.95 K/ L 0.24-0.36 yjza=404) EOSINOPHILS ABSOLUTE COUNT (BEAKER) (test 0.05 K/ L 0.04-0.36 gxez=216) BASOPHILS ABSOLUTE COUNT (BEAKER) (test 0.10 K/ L 0.01-0.08 ktur=178) IMMATURE GRANULOCYTES-RELATIVE PERCENT (BEAKER) 0 % 0-1 (test dwat=4554)
[2019-10-15] MEDS ORDERED: ONDANSETRON 4 MG/2 ML VIAL ONE (05:21)
[2019-10-15] MEDS ORDERED: NA CHLORIDE 0.9% 2,000 ML ONE (05:21)
[2019-10-15] MEDS ORDERED: MEPERIDINE HCL 50 MG/ML ONE (05:21)
[2019-10-15 06:00] LABS: Absolute Lymphocytes (CBC) 1.4 K/uL (0.7-4.9); Basophils % 0.6 % (0-1.3); Hematocrit 42.7 % (36.0-45.0); Lymphocytes % 21.4 % (15.3-44.8); MPV 10.8 fL (7.6-11.3); RBC Red Blood Cell Count 4.27 M/uL (3.86-4.86)
[2019-10-15 06:05] LABS: Albumin 3.5 g/dL (3.4-5.0); Bilirubin Direct 1.6 mg/dL (0-0.2); Bilirubin Total 2.7 mg/dL (0.2-1.0); Protein, Total 7.6 g/dL (6.4-8.2)
[2019-10-15 06:07] LABS: Potassium 2.2 mmol/L (3.5-5.1)
[2019-10-15] MEDS ORDERED: POTASSIUM CL SA 10 MEQ TAB PO ONE (06:13)
[2019-10-15] MEDS ORDERED: KCL 20 MEQ/100 mL IVPB 20 MEQ/100 ML BAG IV ONE ×3 (06:13→13:54)
[2019-10-15 06:33] LABS: Blood Morphology Comment NOT SEEN (NOT SEEN); Platelet Estimate DECR; Urine White Blood Cell Casts OK
[2019-10-15] MEDS ORDERED: THIAMINE 200 MG/2 ML INJ ONE (07:28)
[2019-10-15] MEDS ORDERED: FENTANYL CITR 100 MCG/2 ML ONE ×3 (07:30→16:42)
--- NOTE | 2019-10-15 08:47 | RAD REPORT ---
EXAM DESCRIPTION: Reji Single View10/15/2019 5:49 am CLINICAL HISTORY: fever COMPARISON: none FINDINGS: The lungs appear clear of acute infiltrate. The heart is normal size IMPRESSION: No acute abnormalities displayed
--- NOTE | 2019-10-15 08:48 | RAD REPORT ---
EXAM DESCRIPTION: CT - Abdomen Pelvis W Contrast - 10/15/2019 8:26 am CLINICAL HISTORY: Abdominal pain COMPARISON: August 2019 TECHNIQUE: Computed axial tomography of the abdomen pelvis was obtained. 100 cc Isovue-300 was admin istered intravenously. Oral contrast was not requested which limits evaluation of bowel. All CT scans are performed using dose optimization technique as appropriate and may include automated exposure control or mA/KV adjustment according to patient size. FINDINGS: Fatty liver. The liver is mildly enlarged. Gastric bypass. 6.6 centimeter low-density mass abuts the posterior aspect of the stomach. It lies an terior to the spleen. A portion of the wall is calcified. It is unchanged from the prior exam. Severa l pills are present within the proximal stomach. Mildly dilated loop of proximal jejunum may represent an ileus or atonic bowel The pancreatic head is mildly inhomogeneous. Mild stranding is present within the peripancreatic fat. Adrenals and kidneys are unremarkable Ventral hernia repair. Cholecystectomy There is no evidence of diverticulitis. IMPRESSION: Mild pancreatitis 6.6 centimeter low-density mass between the stomach and spleen likely either represents a pseudocyst or chronic hematoma
--- NOTE | 2019-10-15 09:58 | RAD REPORT ---
EXAM DESCRIPTION: US - Abdomen Exam Limited - 10/15/2019 9:32 am CLINICAL HISTORY: Abdominal pain. COMPARISON: October 15, 2019 cat scan FINDINGS: Cholecystectomy. No fluid collection within the gallbladder fossa The biliary tree is normal caliber. IMPRESSION: Cholecystectomy Otherwise, unremarkable exam
[2019-10-15] MEDS ORDERED: MEPERIDINE HCL 25 MG/0.5 ML ONE ×2 (10:57→13:50)
[2019-10-15] MEDS ORDERED: LORazepam 2 MG/ML VIAL ONE (12:29)
--- NOTE | 2019-10-15 13:21 | RAD REPORT ---
EXAM DESCRIPTION: MRI - Cholangiogram - 10/15/2019 1:05 pm CLINICAL HISTORY: Abdominal pain, prior cholecystectomy, fatty infiltration, vomiting COMPARISON: CT study October 15, ultrasound October 15 TECHNIQUE: Axial and coronal heavily T2 weighted sequences were obtained. Coronal T2 HASTE fat satur ation static and coronal multiplane reconstruction imaging generated and reviewed. Horizontal and amanda tical axis rotational views obtained using maximum intensity projection (MIP) protocol. FINDINGS: Gallbladder is absent. Biliary tree is normal in diameter. No duct stone, stricture, mass or other suspicious finding identifiable. No abnormal fluid collection in the gallbladder fossa. No e vidence for bile leak. Normal bowel activity is seen. IMPRESSION: Unremarkable post cholecystectomy MRCP
[2019-10-15 13:51] LABS: Potassium 2.8 mmol/L (3.5-5.1)
--- NOTE | 2019-10-15 15:30 | EDPHYS ---
Physician Documentation [facility] Name: Charmaine Hughes Age: 49 yrs Sex: Female : 1970 Arrival Date: 10/15/2019 Time: 04:36 Bed 8 Private MD: ED Physician Eligio Mccall HPI: 10/15 05:17 This 49 yrs old Female presents to ER via Wheelchair with complaints of pkl Abdominal Pain, Back Pain. 05:17 The patient presents with abdominal pain that is diffuse. Onset: The symptoms/episode pkl began/occurred 3 day(s) ago. The symptoms radiate to back. Associated signs and symptoms: Pertinent positives: nausea, vomiting, and diarrhea. 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 - Social history:: Smoking status: unknown. - Ebola Screening: : No symptoms or risks identified at this time. ROS: 05:17 Eyes: Negative for injury, pain, redness, and discharge, ENT: Negative for injury, pkl pain, and discharge, Neck: Negative for injury, pain, and swelling, Cardiovascular: Negative for chest pain, palpitations, and edema, Respiratory: Negative for shortness of breath, cough, wheezing, and pleuritic chest pain. 05:17 Abdomen/GI: Positive for abdominal pain, nausea, vomiting, and diarrhea, of the right upper quadrant, left upper quadrant, right lower quadrant and left lower quadrant. 05:17 Back: Positive for pain at rest, of the upper and lower back. 05:17 : Negative for urinary symptoms. 05:17 MS/extremity: Negative for acute changes. 05:17 Skin: Negative for rash. 05:17 Neuro: Negative for altered mental status. Exam: 05:17 Head/Face: Normocephalic, atraumatic. Eyes: Pupils equal round and reactive to light, pkl extra-ocular motions intact. Lids and lashes normal. Conjunctiva and sclera are non-icteric and not injected. Cornea within normal limits. Periorbital areas with no swelling, redness, or edema. ENT: Nares patent. No nasal discharge, no septal abnormalities noted. Tympanic membranes are normal and external auditory canals are clear. Oropharynx with no redness, swelling, or masses, exudates, or evidence of obstruction, uvula midline. Mucous membranes moist. Neck: Trachea midline, no thyromegaly or masses palpated, and no cervical lymphadenopathy. Supple, full range of motion without nuchal rigidity, or vertebral point tenderness. No Meningismus. Chest/axilla: Normal chest wall appearance and motion. Nontender with no deformity. No lesions are appreciated. Cardiovascular: Regular rate and rhythm with a normal S1 and S2. No gallops, murmurs, or rubs. Normal PMI, no JVD. No pulse deficits. Respiratory: Lungs have equal breath sounds bilaterally, clear to auscultation and percussion. No rales, rhonchi or wheezes noted. No increased work of breathing, no retractions or nasal flaring. 05:17 Abdomen/GI: Bowel sounds: normal, Palpation: soft, mild abdominal tenderness, in all quadrants. 05:17 Back: Exam negative for acute changes. 05:17 : Exam negative for acute changes. 05:17 Musculoskeletal/extremity: Exam is negative for acute changes. 05:17 Skin: Exam negative for rash. 05:17 Neuro: Orientation: is normal, Mentation: is normal, Cranial nerves: grossly normal, Motor: is normal. Vital Signs: 05:00 BP 121 / 80; Pulse 107; Resp 16 S; Temp 97.2(O); Pulse Ox 99% on R/A; Weight 95.25 kg bb (R); Height 5 ft. 10 in. (177.80 cm) (R); Pain 10/10; 06:00 BP 105 / 70; Pulse 102; Resp 19; Pulse Ox 98% ; Pain 4/10; rr5 06:22 BP 107 / 82; Pulse 73; Resp 17; Temp 97; Pulse Ox 98% ; rr5 07:00 BP 109 / 80; Pulse 93; Resp 22; Pulse Ox 98% ; sv 07:45 BP 102 / 70; Pulse 99; Resp 20; Pulse Ox 98% ; sv 08:45 BP 121 / 69; Pulse 94; Resp 20; Pulse Ox 98% ; sv 09:30 BP 113 / 75; Pulse 102; Resp 20; Pulse Ox 99% ; sv 10:15 BP 97 / 53; Pulse 91; Resp 18; Pulse Ox 99% ; sv 11:19 BP 103 / 65; Pulse 97; Resp 18; Pulse Ox 98% ; sv 12:03 BP 108 / 72; Pulse 96; Resp 20; Pulse Ox 100% ; sv 12:10 Temp 97.6(TE); em1 13:15 BP 114 / 72; Pulse 108; Resp 20; Pulse Ox 98% ; sv 14:00 BP 98 / 69; Pulse 102; Resp 18; Pulse Ox 99% ; sv 15:20 BP 107 / 76; Pulse 99; Resp 17; Pulse Ox 98% ; sv 15:38 BP 105 / 71; Pulse 103; Resp 18; Pulse Ox 98% ; sv 16:25 BP 95 / 78; Pulse 94; Resp 17; Pulse Ox 98% on R/A; sv 16:37 BP 102 / 65; Pulse 98; Resp 20; Pulse Ox 99% ; sv 05:00 Body Mass Index 30.13 (95.25 kg, 177.80 cm) bb MDM: 04:48 Patient medically screened. pkl 10:23 Data reviewed: vital signs, nurses notes. Data interpreted: Pulse oximetry: on room air snw is 99 %. Interpretation: normal. Counseling: I had a detailed discussion with the patient and/or guardian regarding: the historical points, exam findings, and any diagnostic results supporting the discharge/admit diagnosis, lab results, radiology results, the need for further work-up and treatment in the hospital. Physician consultation: Graciela Rosa MD was called at 10:23, was contacted at 10:23, regarding admission, to the telemetry unit. 11:00 Physician consultation: would like further tests performed, MRCP. snw 12:08 Physician consultation: Graciela Rosa MD after a discussion of the case, a snw recommendation for transfer for higher level of care is made, Dr. Rosa spoke with Dr. Sinclair re: pseudocyst abutting stomache, Surgeon recommends transfer. 15:24 Physician consultation: Dr. Hall was contacted at 15:25, regarding regarding snw transfer, to [facility]. Dr. Hall kindly accepts pt in transfer. 10/15 05:14 Order name: Basic Metabolic Panel pkl 10/15 05:14 Order name: CBC with Diff pkl 10/15 05:14 Order name: Creatinine for Radiology pk 10/15 05:14 Order name: Hepatic Function pkl 10/15 05:14 Order name: Lipase pkl 10/15 05:16 Order name: Flu pkl 10/15 05:16 Order name: Stool Culture pk 10/15 06:01 Order name: Creatinine (Radiology Only); Complete Time: 06:05 EDMS 10/15 06:01 Order name: Influenza Screen (A ; Complete Time: 06:05 EDMS 10/15 06:08 Order name: Basic Metabolic Panel; Complete Time: 06:10 EDMS 10/15 06:08 Order name: Liver (Hepatic) Function; Complete Time: 06:10 EDMS 10/15 06:08 Order name: Lipase; Complete Time: 06:10 EDMS 10/15 06:32 Order name: CBC with Automated Diff; Complete Time: 06:45 EDMS 10/15 06:36 Order name: CBC Smear Scan; Complete Time: 06:45 EDMS 10/15 05:23 Order name: XRAY CXR (1 view) pkl 10/15 05:24 Order name: CT Abd/Pelvis - PO and IV Contrast pk 10/15 06:35 Order name: US Abdomen Limited pkl 10/15 08:49 Order name: RAD; Complete Time: 08:52 EDMS 10/15 08:50 Order name: CT; Complete Time: 08:52 EDMS 10/15 09:59 Order name: US; Complete Time: 10:02 EDMS 10/15 11:53 Order name: Chem 7 snw 10/15 13:22 Order name: MRI; Complete Time: 13:26 EDMS 10/15 13:51 Order name: Basic Metabolic Panel; Complete Time: 13:57 EDMS 10/15 05:14 Order name: IV Saline Lock; Complete Time: 05:40 pkl 10/15 05:14 Order name: Labs collected and sent; Complete Time: 05:40 pkl Administered Medications: 05:30 Drug: NS 0.9% 1000 ml Route: IV; Rate: 1000 ml; Site: right forearm; rr5 06:15 Follow up: Response: No adverse reaction; IV Status: Completed infusion; IV Intake: rr5 1000ml 05:30 Drug: Zofran 4 mg Route: IVP; Site: right forearm; rr5 06:26 Follow up: Response: No adverse reaction rr5 05:32 Drug: Demerol 50 mg {Note: rass 0.} Route: IVP; Site: right forearm; rr5 06:26 Follow up: Response: Pain is decreased; RASS: Alert and Calm (0) rr5 06:15 Drug: NS 0.9% 1000 ml Route: IV; Rate: 125 ml/hr; Site: right forearm; rr5 10:58 Follow up: IV SiteChange: right antecubital; IV SiteChange Reason: Infiltration sv 06:19 Drug: Potassium Chloride 20 mEq Route: IV; Rate: calculated rate; Site: right forearm; rr5 08:30 Follow up: Response: No adverse reaction; IV Status: Completed infusion; IV Intake: sv 100ml 06:19 Drug: K-Dur 40 mEq Route: PO; rr5 07:06 Follow up: Response: No adverse reaction rr5 07:30 Drug: fentaNYL (PF) 25 mcg {Note: RASS2.} Route: IVP; Site: right forearm; sv 08:42 Follow up: Response: No adverse reaction; RASS: Restless (+1); Pt back from CT sv 07:33 Drug: Thiamine 100 mg Route: IV; Rate: calculated rate; Site: right forearm; sv 08:42 Drug: Potassium Chloride 20 mEq Route: IV; Rate: calculated rate; Site: right forearm; sv 09:50 Drug: fentaNYL (PF) 25 mcg {Note: RASS1.} Route: IVP; Site: right antecubital; sv 10:22 Follow up: Response: No adverse reaction; RASS: Restless (+1) sv 10:58 Drug: Demerol 25 mg Route: IVP; Site: right antecubital; sv 11:30 Follow up: Response: No adverse reaction; RASS: Alert and Calm (0) sv 12:30 Drug: Ativan 1 mg Route: IVP; Site: right antecubital; sg 13:53 Follow up: Response: No adverse reaction sv 14:00 Drug: Demerol 25 mg Route: IVP; Site: right antecubital; sg 14:05 Follow up: Response: No adverse reaction; Pain is decreased; RASS: Alert and Calm (0) sv 14:00 Drug: Potassium Chloride 20 mEq Route: IV; Rate: calculated rate; Site: right sg antecubital; 16:15 Follow up: Response: No adverse reaction; IV Status: Completed infusion; IV Intake: sv 100ml 15:41 Drug: NS 0.9% 1000 ml Route: IV; Rate: 125 ml/hr; Site: right antecubital; sv 17:50 Follow up: Response: No adverse reaction; IV Status: Infusion continued upon transfer; sg IV Intake: 1250ml 16:43 Drug: fentaNYL (PF) 25 mcg {Note: RASS1.} Route: IVP; Site: right antecubital; sv 17:50 Follow up: Response: No adverse reaction; Pain is decreased; RASS: Alert and Calm (0) sg Disposition: 10/15/19 15:[address] [facility]. Diagnosis are Acute pancreatitis, Localized swelling, mass and lump, unspecified. - Reason for transfer: Higher level of care. - Accepting physician is Dr. Hall. - Condition is Stable. - Problem is new. - Symptoms are unchanged. Signatures: Dispatcher [employer] Eliz De Leon RN RN sv Gay, Steven, RN RN Eligio Mccall MD MD pkl Anne Marie Barnes, PEDIATRIC CRITICAL CARE NURSE-C PEDIATRIC CRITICAL CARE NURSE-Csnw Althea Block, RN RN Yong Karimi RN RN rr5 Corrections: (The following items were deleted from the chart) 17:51 15:27 10/15/2019 15:[address] [facility]. Diagnosis is sg Acute pancreatitis; Localized swelling, mass and lump, unspecified. Reason for transfer: Higher level of care. Accepting physician is Dr. Hall. Condition is Stable. Problem is new. Symptoms are unchanged. snw
[2019-10-15] MEDS ORDERED: NA CHLORIDE 0.9% 1,000 ML ONE (15:41)
--- NOTE | 2019-10-15 17:52 | ER ---
Nurse's Notes [facility] Name: Charmaine Hughes Age: 49 yrs Sex: Female : 1970 Arrival Date: 10/15/2019 Time: 04:36 Bed 8 Private MD: Diagnosis: Acute pancreatitis;Localized swelling, mass and lump, unspecified Presentation: 10/15 04:56 Presenting complaint: Patient states: she thought she had the flu has been vomiting bb since Friday, Friday started having diarrhea, intermittent fever, last night started having intense abdominal pain and distention. Transition of care: patient was not received from another setting of care. Onset of symptoms was October 11, 2019. Risk Assessment: Do you want to hurt yourself or someone else? Patient reports no desire to harm self or others. Initial Sepsis Screen: Does the patient meet any 2 criteria? No. Patient's initial sepsis screen is negative. Does the patient have a suspected source of infection? No. Patient's initial sepsis screen is negative. Care prior to arrival: None. 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 LMP 1992 rr5 Historical: - Allergies: 05:00 Morphine; bb 05:00 Sulfa (Sulfonamide Antibiotics); bb 05:00 tramadol; bb - Home Meds: 05:00 Cymbalta 60 mg Oral cpDR 1 cap once daily [Active]; dicyclomine 10 mg Oral cap 1 cap 3 bb times per day [Active]; estradiol 2 mg Oral tab 1 tab once daily [Active]; levothyroxine 100 mcg tab 1 tab once daily [Active]; propranolol 10 mg Oral tab daily [Active]; Prilosec 40 mg Oral cpDR 1 cap once daily [Active]; - PMHx: 05:00 fatty liver disease; Hypothyroidism; bb - PSHx: 05:00 Gastric Bypass; Hysterectomy; bb - Immunization history:: Adult Immunizations up to date. - Social history:: Smoking status: unknown. - Ebola Screening: : No symptoms or risks identified at this time. Screenin:55 Abuse screen: Denies threats or abuse. Denies injuries from another. Nutritional rr5 screening: No deficits noted. Tuberculosis screening: No symptoms or risk factors identified. Fall Risk IV access (20 points). Total Casanova Fall Scale indicates No Risk (0-24 pts). Assessment: 05:00 General: Appears in no apparent distress. uncomfortable, Behavior is calm, cooperative, rr5 appropriate for age, Reports fever for. 05:00 Pain: Complains of pain in abdomen Pain radiates to back Pain currently is 10 out of 10 rr5 on a pain scale. Quality of pain is described as aching, Pain began gradually, Is intermittent. Neuro: Level of Consciousness is awake, alert, obeys commands, Oriented to person, place, time, situation, Appropriate for age. Cardiovascular: Capillary refill < 3 seconds Patient's skin is warm and dry. Respiratory: Airway is patent Respiratory effort is even, unlabored, Respiratory pattern is regular, symmetrical. GI: Abdomen is round Bowel sounds present X 4 quads. Guarding noted Reports lower abdominal pain, upper abdominal pain, diarrhea, nausea. : No signs and/or symptoms were reported regarding the genitourinary system. EENT: No signs and/or symptoms were reported regarding the EENT system. Derm: Skin is intact, is healthy with good turgor, Skin temperature is warm. Musculoskeletal: Circulation, motion, and sensation intact. Capillary refill < 3 seconds. 06:00 Reassessment: Patient appears in no apparent distress at this time. Patient is alert, rr5 oriented x 3, equal unlabored respirations, skin warm/dry/pink. for CT scan awaiting for the oral contrast to cosume. Patient states feeling better. Patient states symptoms have improved. 06:15 Reassessment: Patient appears in no apparent distress at this time. K 2.2 result. ED rr5 provider aware with order made and carried out. oral contrast consumed CT staff aware. 07:10 General: Appears in no apparent distress. uncomfortable, Behavior is calm, cooperative, sv appropriate for age. Pain: Complains of pain in abdomen Pain currently is 10 out of 10 on a pain scale. Is continuous. Neuro: Level of Consciousness is awake, alert, obeys commands, Oriented to person, place, time, situation. Respiratory: Respiratory effort is even, unlabored, Respiratory pattern is regular, symmetrical. GI: Abdomen is round Reports lower abdominal pain, upper abdominal pain. Derm: Skin is normal. 07:15 Reassessment: Patient appears in no apparent distress at this time. Patient and/or sg family updated on plan of care and expected duration. Pain level reassessed. Patient is alert, oriented x 3, equal unlabored respirations, skin warm/dry/pink. awaiting CT, awaiting Ultrasound, pt requesting medication for pain control, ERP notified. 08:42 Reassessment: Patient appears in no apparent distress at this time. Patient and/or sv family updated on plan of care and expected duration. Pain level reassessed. Patient is alert, oriented x 3, equal unlabored respirations, skin warm/dry/pink. 09:36 Reassessment: Pt requesting pain medication, informed Anne Maire ELECTRONIC OPERATOR. sv 09:50 Reassessment: Patient appears in no apparent distress at this time. Patient and/or sv family updated on plan of care and expected duration. Pain level reassessed. Patient is alert, oriented x 3, equal unlabored respirations, skin warm/dry/pink. 10:22 Reassessment: Ice chips given by Anne Marie SKELTON. sv 10:57 Reassessment: Anne Marie SKELTON stated we are waiting for the MRCP to be done on the pt before sv deciding disposition. 14:00 Reassessment: Patient appears in no apparent distress at this time. Patient and/or sg family updated on plan of care and expected duration. Pain level reassessed. pt requesting ICE chips and/or water at this time, educated on NPO for treatment of pancreatitis, pt offered oral glycerin swabs for dry mouth, pt reports will like those to try, pt provided with swabs, will continue to monitor. 15:41 Reassessment: Patient appears in no apparent distress at this time. Patient and/or sv family updated on plan of care and expected duration. Pain level reassessed. Patient is alert, oriented x 3, equal unlabored respirations, skin warm/dry/pink. 16:43 Reassessment: Patient appears in no apparent distress at this time. Patient and/or sv family updated on plan of care and expected duration. Pain level reassessed. Patient is alert, oriented x 3, equal unlabored respirations, skin warm/dry/pink. 17:50 Reassessment: Patient appears in no apparent distress at this time. pt requesting sg Nausea medication for transport to receiving facility, V/O received for phenergan 12.5 mg IVP, pt transferred with [facility]. Vital Signs: 05:00 BP 121 / 80; Pulse 107; Resp 16 S; Temp 97.2(O); Pulse Ox 99% on R/A; Weight 95.25 kg bb (R); Height 5 ft. 10 in. (177.80 cm) (R); Pain 10/10; 06:00 BP 105 / 70; Pulse 102; Resp 19; Pulse Ox 98% ; Pain 4/10; rr5 06:22 BP 107 / 82; Pulse 73; Resp 17; Temp 97; Pulse Ox 98% ; rr5 07:00 BP 109 / 80; Pulse 93; Resp 22; Pulse Ox 98% ; sv 07:45 BP 102 / 70; Pulse 99; Resp 20; Pulse Ox 98% ; sv 08:45 BP 121 / 69; Pulse 94; Resp 20; Pulse Ox 98% ; sv 09:30 BP 113 / 75; Pulse 102; Resp 20; Pulse Ox 99% ; sv 10:15 BP 97 / 53; Pulse 91; Resp 18; Pulse Ox 99% ; sv 11:19 BP 103 / 65; Pulse 97; Resp 18; Pulse Ox 98% ; sv 12:03 BP 108 / 72; Pulse 96; Resp 20; Pulse Ox 100% ; sv 12:10 Temp 97.6(TE); em1 13:15 BP 114 / 72; Pulse 108; Resp 20; Pulse Ox 98% ; sv 14:00 BP 98 / 69; Pulse 102; Resp 18; Pulse Ox 99% ; sv 15:20 BP 107 / 76; Pulse 99; Resp 17; Pulse Ox 98% ; sv 15:38 BP 105 / 71; Pulse 103; Resp 18; Pulse Ox 98% ; sv 16:25 BP 95 / 78; Pulse 94; Resp 17; Pulse Ox 98% on R/A; sv 16:37 BP 102 / 65; Pulse 98; Resp 20; Pulse Ox 99% ; sv 05:00 Body Mass Index 30.13 (95.25 kg, 177.80 cm) bb ED Course: 04:36 Patient arrived in ED. ds1 04:48 Eligio Mccall MD is Attending Physician. pkl 04:55 Yong Karimi, DANICA is Primary Nurse. rr5 04:58 Triage completed. bb 05:00 Arm band placed on Patient placed in an exam room, on a stretcher, on pulse oximetry. bb Family accompanied patient. 05:00 Patient has correct armband on for positive identification. Placed in gown. Bed in low rr5 position. Call light in reach. Side rails up X2. Pulse ox on. NIBP on. 05:18 Yong Karimi, RN is Primary Nurse. rr5 05:30 Inserted saline lock: 20 gauge in right forearm, using aseptic technique. Blood rr5 collected. 05:55 Oral contrast given. eh 06:26 No provider procedures requiring assistance completed. rr5 06:38 [facility]C [facility] snw 07:04 Flu Sent. sv 07:04 Basic Metabolic Panel Sent. sv 07:04 CBC with Diff Sent. sv 07:04 Creatinine for Radiology Sent. sv 07:04 Hepatic Function Sent. sv 07:04 Lipase Sent. sv 07:45 Primary Nurse role handed off by Yong Karimi, DANICA sv 07:45 Eliz Neves RN is Primary Nurse. sv 08:43 Awaiting radiology results. Awaiting re-evaluation by ER provider. sv 09:45 IV discontinued, intact, bleeding controlled, Pressure dressing applied, IV infiltrated sv to the R FA. 09:47 Inserted saline lock: 20 gauge in right antecubital area, using aseptic technique. sv Flushed right antecubital with 5 ml normal saline. 10:04 US Abdomen Limited Sent. sv 10:04 CT Abd/Pelvis - PO and IV Contrast Sent. sv 10:04 XRAY CXR (1 view) Sent. sv 10:22 Awaiting disposition. sv 13:53 Chem 7 Sent. sv 13:55 Awaiting disposition, Awaiting re-evaluation by ER provider. sv 14:43 initiated a transfer with Nora Sullivan from the [facility] transfer [place]. eb 15:[address] Hall the hospitalist marble mason for [facility] with Anne Marie SKELTON for patient transfer consultation. 15:39 administrative approval given by Nora Sullivan/ Patient has been accepted to [facility] bed 2019/ Dr. Hall has accepted the patient in transfer/ report to be called to [phone]. Administered Medications: 05:30 Drug: NS 0.9% 1000 ml Route: IV; Rate: 1000 ml; Site: right forearm; rr5 06:15 Follow up: Response: No adverse reaction; IV Status: Completed infusion; IV Intake: rr5 1000ml 05:30 Drug: Zofran 4 mg Route: IVP; Site: right forearm; rr5 06:26 Follow up: Response: No adverse reaction rr5 05:32 Drug: Demerol 50 mg {Note: rass 0.} Route: IVP; Site: right forearm; rr5 06:26 Follow up: Response: Pain is decreased; RASS: Alert and Calm (0) rr5 06:15 Drug: NS 0.9% 1000 ml Route: IV; Rate: 125 ml/hr; Site: right forearm; rr5 10:58 Follow up: IV SiteChange: right antecubital; IV SiteChange Reason: Infiltration sv 06:19 Drug: Potassium Chloride 20 mEq Route: IV; Rate: calculated rate; Site: right forearm; rr5 08:30 Follow up: Response: No adverse reaction; IV Status: Completed infusion; IV Intake: sv 100ml 06:19 Drug: K-Dur 40 mEq Route: PO; rr5 07:06 Follow up: Response: No adverse reaction rr5 07:30 Drug: fentaNYL (PF) 25 mcg {Note: RASS2.} Route: IVP; Site: right forearm; sv 08:42 Follow up: Response: No adverse reaction; RASS: Restless (+1); Pt back from CT sv 07:33 Drug: Thiamine 100 mg Route: IV; Rate: calculated rate; Site: right forearm; sv 08:42 Drug: Potassium Chloride 20 mEq Route: IV; Rate: calculated rate; Site: right forearm; sv 09:50 Drug: fentaNYL (PF) 25 mcg {Note: RASS1.} Route: IVP; Site: right antecubital; sv 10:22 Follow up: Response: No adverse reaction; RASS: Restless (+1) sv 10:58 Drug: Demerol 25 mg Route: IVP; Site: right antecubital; sv 11:30 Follow up: Response: No adverse reaction; RASS: Alert and Calm (0) sv 12:30 Drug: Ativan 1 mg Route: IVP; Site: right antecubital; sg 13:53 Follow up: Response: No adverse reaction sv 14:00 Drug: Demerol 25 mg Route: IVP; Site: right antecubital; sg 14:05 Follow up: Response: No adverse reaction; Pain is decreased; RASS: Alert and Calm (0) sv 14:00 Drug: Potassium Chloride 20 mEq Route: IV; Rate: calculated rate; Site: right sg antecubital; 16:15 Follow up: Response: No adverse reaction; IV Status: Completed infusion; IV Intake: sv 100ml 15:41 Drug: NS 0.9% 1000 ml Route: IV; Rate: 125 ml/hr; Site: right antecubital; sv 17:50 Follow up: Response: No adverse reaction; IV Status: Infusion continued upon transfer; sg IV Intake: 1250ml 16:43 Drug: fentaNYL (PF) 25 mcg {Note: RASS1.} Route: IVP; Site: right antecubital; sv 17:50 Follow up: Response: No adverse reaction; Pain is decreased; RASS: Alert and Calm (0) sg Intake: 06:15 IV: 1000ml; Total: 1000ml. rr5 08:30 IV: 100ml; Total: 1100ml. sv 16:15 IV: 100ml; Total: 1200ml. sv 17:50 IV: 1250ml; Total: 2450ml. sg Outcome: 15:27 ER care complete, transfer ordered by . snw 16:24 Transferred by ground EMS to [facility], Transfer form completed. sv X-rays sent w/ patient. Note: Report given to Stefania MISHRA 16:24 Condition: stable 16:24 Instructed on the need for transfer. 17:51 Patient left the ED. sg Signatures: Eliz Neves, RN Sekou Noriega RN RN sg Lam, Pin, MD MD pkl Therrien, Shelly, RIDING DOUBLE-C RIDING DOUBLE-Csnw Ignacio Chery Demi ds1 Althea Block, RN RN Cesar Anderson emNora Bazzi Raymond RN RN rr5
[2019-10-15] MEDS ORDERED: PROMETHAZINE 25 MG/ML VIAL ONE (17:56)
[2019-10-16 00:42] VITALS: TEMP 97.6
[2019-10-16 00:52] VITALS: BP 102/65; O2SAT 99
== END 2019-10-15 17:51 | disposition short-term general hospital (02) ==
LOC: ER 04:35
DX: K85.90 Acute pancreatitis without necrosis or infection, unspecified (principal); R22.9 Localized swelling, mass and lump, unspecified; E03.9 Hypothyroidism, unspecified; Z88.5 Allergy status to narcotic agent; Z88.2 Allergy status to sulfonamides; Z98.84 Bariatric surgery status
CPT/HCPCS: 36415; 71045; 74177; 74181; 76705; 80048; 80076; 83690; 85025; 87804; 99285; J2175; J2405; J2550; J3010; J3411; J7030; Q9967

== ENCOUNTER 2020-07-06 00:47 | Emergency (ER) | payer SELFPAY ==
--- OUTSIDE RECORDS SUMMARY | 2020-07-06 00:49 | XMS REPORT | Clinical Summary ---
:1970 Author Organization [facility] Address [address] [place] [address] Care Team Providers Name Role Phone Pcp, No Primary Care Provider Unavailable Allergies Active Allergy Reactions Severity Noted Date Comments Morphine Itching 09/13/2019 Sulfa (Sulfonamide Antibiotics) Swelling 9 Tramadol Nausea And Vomiting 09/13/2019 Medications Medication Sig Dispensed Refills Start Date End Date Status estradiol (ESTRACE) Take 2 mg by 0 Active 2 MG mouth daily. tabletIndications: hysterectomy levothyroxine Take 100 mcg 0 Act irena (SYNTHROID, by mouth LEVOTHROID) 100 MCG Every morning tablet on an empty stomach. dicyclomine (BENTYL) Take 10 mg by 0 Active 10 MG capsule mouth 3 (three) times daily. propranolol Take 10 mg by 0 Acti ve (INDERAL) 10 MG mouth 2 (two) tablet times daily. folic acid (FOLVITE) Take 1 mg by 0 Active 1 MG tablet mouth daily. omeprazole Take 40 mg by 0 Activ e (PRILOSEC) 40 MG mouth daily. capsule DULoxetine Take 60 mg by 0 Activ e (CYMBALTA) 60 MG mouth daily. capsule ondansetron Take 1 tablet 30 tablet 0 09/16/2019 Act irena (ZOFRAN-ODT) 4 MG (4 mg total) disintegrating by mouth tablet every 6 (six) hours as needed for Nausea. multivitamin Take 1 tablet 30 tablet 11 10/20/2019 10/19/2020 A ctive (THERAGRAN) tablet by mouth daily. ondansetron Take 1 tablet 0 08/11/2019 09/16/2019 Di scontinued (ZOFRAN-ODT) 4 MG by mouth disintegrating every 6 (six) tablet hours as needed for Nausea. HYDROcodone-acetamin Take 1 tablet 20 tablet 0 09/16/201909/17 ophen (NORCO 5-325) by mouth 5-325 mg per tablet every 6 (six) hours as needed for up to 10 days. Max Daily Amount: 4 tablets LORazepam (ATIVAN) 1 Take 1 tablet 10 tablet 0 09/16/201903/2019 MG tablet (1 mg total) by mouth every 12 (twelve) hours as needed for Anxiety for up to 5 days. Max Daily Amount: 2 mg multivitamin Take 1 tablet 30 tablet 0 09/17/2019 10/20/2019 D iscontinued (THERAGRAN) tablet by mouth daily for 30 days. potassium chloride Take 2 60 tablet 0 09/17/2019 10/20/2019 Discontinued SA (K-DUR,KLOR-CON) tablets (40 20 MEQ tablet mEq total) by mouth daily for 30 days. thiamine 100 MG Take 1 tablet 30 tablet 0 09/17/2019 9 Discontinued tablet (100 mg total) by mouth daily for 30 days. THERA 400 mcg Tab TAKE 1 TABLET 0 09/16/2019 019 Discontinued BY MOUTH ONCE DAILY FOR 30 DAYS thiamine 100 MG Take 1 tablet 30 tablet 0 10/20/2019 0 tablet (100 mg total) by mouth daily for 30 days. LORazepam (ATIVAN) 1 Take 1 tablet 10 tablet 0 10/20/201907/2019 MG tablet (1 mg total) by mouth every 12 (twelve) hours as needed for Anxiety for up to 5 days. Max Daily Amount: 2 mg HYDROcodone-acetamin Take 1 tablet 20 tablet 0 10/20/201910/17 ophen (NORCO 5-325) by mouth 5-325 mg per tablet every 8 (eight) hours as needed for up to 10 days. Max Daily Amount: 3 tablets Active Problems Problem Noted Date Acute pancreatitis 10/18/2019 Pseudocyst of pancreas 10/15/2019 Intractable vomiting with nausea 09/13/2019 Epigastric pain 09/13/2019 Alcohol abuse 09/13/2019 Other specified hypothyroidism 09/13/2019 Encounters Date Type Specialty Care Team Description 10/15/2019 - Hospital Encounter Oncology Isabel, Piper, Intr actable vomiting with nausea; 10/20/2019 Pseudocyst of pancreas Brann, Christopher Silvio, MD Chanell Rocha MD Arif, Sahar, MD 10/15/2019 Travel 10/15/2019 Documentation Internal Piper Hall Medicine MD 09/17/2019 EpicOnHand Encounter Internal Radha Arias MD Medicine 09/14/2019 Travel 09/13/2019 - Hospital Encounter General Internal Dennis Anurag Alcohol abuse (Primary Dx); 09/16/2019 Medicine MD Silvio Epigastric pain; Cherelle Chen Intractab le vomiting with nausea; MD Bienvenido Other specified hypothyroidism; Radha Arias MD Acute pancre atitis, unspecified complication status, unspecified pancreatitis type; Pseudocyst of p ancreas; Acute diarrhea after 07/06/2019 Immunizations Name Dates Previously Given Next Due Pneumococcal Conjugate (Prevnar) 13-Valent 10/20/2019 Family History Medical History Relation Name Comments Cancer Father Heart disease Mother Relation Name Status Comments Father Mother Social History Tobacco Use Types Packs/Day Years Used Date Former Smoker 1 25 Smokeless Tobacco: Never Used Alcohol Use Drinks/Week oz/Week Comments Yes 3-4 drinks every other day for two years Sex Assigned at Date Recorded Not on file Job Start Date Occupation Industry Not on file Not on file Not on file Travel History Travel Start Travel End No recent travel history available. Last Filed Vital Signs Vital Sign Reading Time Taken Blood Pressure 92/53 10/20/2019 8:35 AM [employer] Pulse 80 10/20/2019 8:35 AM [employer] Temperature 36.4 C (97.5 F) 10/20/2019 8:35 AM [employer] Respiratory Rate 18 10/20/2019 8:35 AM [employer] Oxygen Saturation 98% 10/20/2019 8:35 AM [employer] Inhaled Oxygen Concentration - - Weight 92.5 kg (203 lb 14.4 oz) 10/15/2019 11:5 0 PM [employer] Height 177.8 cm (5' 10") 10/15/2019 7:26 PM [employer] Body Mass Index 29.26 10/15/2019 11:50 PM [employer] Plan of Treatment Health Maintenance Due Date Last Done Comments BREAST CANCER SCREENING 1970 COLON CANCER SCREENING COLONOSCOPY 1970 CERVICAL CANCER SCREENING PAP ONLY (Age 21-65) 1990 PNEUMOCOCCAL VACCINE 2-64 YEARS AT RISK (1 of 1 - 12/15/2019 10/20/2019 PPSV23) INFLUENZA VACCINE (#1) 2020 Procedures Procedure Name Priority Date/Time Associated Comments Diagnosis CBC W/PLT COUNT & Routine 10/18/2019 4:31 Result s for this AUTO DIFFERENTIAL AM [employer] procedure are in the results section. HEPATIC FUNCTION Routine 10/18/2019 4:31 Results for this PANEL AM [employer] procedure are i n the results section. CBC W/PLT COUNT & Routine 10/18/2019 4:31 Result s for this AUTO DIFFERENTIAL AM [employer] procedure are in the results section. BASIC METABOLIC PANEL Routine 10/18/2019 4:31 Re sults for this (7) AM [employer] procedure are i n the results section. BASIC METABOLIC PANEL STAT 10/17/2019 3:44 Re sults for this (7) PM [employer] procedure are i n the results section. US ABDOMEN COMPLETE Routine 10/17/2019 11:41 Resu lts for this AM [employer] procedure are i n the results section. CBC W/PLT COUNT & Routine 10/17/2019 6:19 Result s for this AUTO DIFFERENTIAL AM [employer] procedure are in the results section. CBC W/PLT COUNT & Routine 10/17/2019 6:19 Result s for this AUTO DIFFERENTIAL AM [employer] procedure are in the results section. BASIC METABOLIC PANEL Routine 10/17/2019 6:19 Re sults for this (7) AM [employer] procedure are i n the results section. BASIC METABOLIC PANEL Routine 10/16/2019 5:11 Re sults for this (7) PM [employer] procedure are i n the results section. CBC W/PLT COUNT & Routine 10/16/2019 5:34 Result s for this AUTO DIFFERENTIAL AM [employer] procedure are in the results section. LIPID PANEL Routine 10/16/2019 5:34 Results for this AM [employer] procedure are i n the results section. CBC W/PLT COUNT & Routine 10/16/2019 5:34 Result s for this AUTO DIFFERENTIAL AM [employer] procedure are in the results section. BASIC METABOLIC PANEL Routine 10/16/2019 5:34 Re sults for this (7) AM [employer] procedure are i n the results section. CBC W/PLT COUNT & Routine 10/15/2019 9:21 Result s for this AUTO DIFFERENTIAL PM [employer] procedure are in the results section. HEPATIC FUNCTION Routine 10/15/2019 9:21 Results for this PANEL PM [employer] procedure are i n the results section. LACTIC ACID, VENOUS Routine 10/15/2019 9:21 Resu lts for this PM [employer] procedure are i n the results section. LIPASE Routine 10/15/2019 9:21 Results for this PM [employer] procedure are i n the results section. BASIC METABOLIC PANEL Routine 10/15/2019 9:21 Re sults for this (7) PM [employer] procedure are i n the results section. CBC W/PLT COUNT & Routine 10/15/2019 9:21 Result s for this AUTO DIFFERENTIAL PM [employer] procedure are in the results section. HEPATIC FUNCTION Routine 09/15/2019 5:08 Results for this PANEL AM CDT procedure are i n the results section. MAGNESIUM Routine 09/15/2019 5:08 Results for this AM CDT procedure are i n the results section. BASIC METABOLIC PANEL Routine 09/15/2019 5:08 Re sults for this (7) AM CDT procedure are i n the results section. MR ABDOMEN WITH & Routine 09/14/2019 9:10 Result s for this WITHOUT IV CONTRAST PM CDT procedur e are in the results section. CBC (HEMOGRAM ONLY) Routine 09/14/2019 3:51 Resu lts for this AM CDT procedure are i n the results section. HEPATIC FUNCTION Routine 09/14/2019 3:51 Results for this PANEL AM CDT procedure are i n the results section. MAGNESIUM Routine 09/14/2019 3:51 Results for this AM CDT procedure are i n the results section. BASIC METABOLIC PANEL Routine 09/14/2019 3:51 Re sults for this (7) AM CDT procedure are i n the results section. LIPID PANEL Routine 09/14/2019 3:51 Results for this AM CDT procedure are i n the results section. US ABDOMEN COMPLETE Routine 09/14/2019 2:22 Resu lts for this AM CDT procedure are i n the results section. CBC W/PLT COUNT & Routine 09/13/2019 6:29 Result s for this AUTO DIFFERENTIAL AM CDT procedure are in the results section. LIPASE Routine 09/13/2019 6:29 Results for this AM CDT procedure are i n the results section. CBC W/PLT COUNT & Routine 09/13/2019 6:29 Result s for this AUTO DIFFERENTIAL AM CDT procedure are in the results section. HEPATITIS PANEL, Routine 09/13/2019 6:29 Results for this ACUTE AM CDT procedure are i n the results section. HEPATIC FUNCTION Routine 09/13/2019 6:29 Results for this PANEL AM CDT procedure are i n the results section. MAGNESIUM Routine 09/13/2019 6:29 Results for this AM CDT procedure are i n the results section. BASIC METABOLIC PANEL Routine 09/13/2019 6:29 Re sults for this (7) AM CDT procedure are i n the results section. after 07/06/2019 Results CBC with platelet count + automated diff (10/18/2019 4:31 AM [employer])Only the most recent of5 resultswithin the time period is included. WBC 4.4 3.5 - 10.5 K/L [facility] RBC 3.58 (L) 3.93 - 5.22 M/L [facility] Hemoglobin 12.5 11.2 - 15.7 GM/DL [facility] Hematocrit 35.9 34.1 - 44.9 % [facility] MCV 100.3 (H) 79.4 - 94.8 fL [facility] MCH 34.9 (H) 25.6 - 32.2 pg [facility] MCHC 34.8 32.2 - 35.5 GM/DL [facility] RDW 16.1 (H) 11.7 - 14.4 % [facility] Platelets 85 (L) 150 - 450 K/CU MM [facility] MPV 13.6 (H) 9.4 - 12.3 fL [facility] nRBC 1 (H) 0 - 0 /100 WBC [facility] % Neutros 44 % [facility] % Lymphs 29 % [facility] % Monos 20 % [facility] % Eos 3 % [facility] % Baso 2 % [facility] # Neutros 1.91 1.56 - 6.13 K/L [facility] # Lymphs 1.28 1.18 - 3.74 K/L [facility] # Monos 0.88 (H) 0.24 - 0.36 K/L [facility] # Eos 0.12 0.04 - 0.36 K/L [facility] # Baso 0.09 (H) 0.01 - 0.08 K/L [facility] Immature 2 (H) 0 - 1 % [facility] Granulocytes-Relative MEDICAL CE NTER Specimen Blood Performing Organization Address City/[facility]/Zipcode Phone Number [address] [address] JONES Hepatic function panel (10/18/2019 4:31 AM [employer])Only the most recent of5 results within the time period is included. Protein, Total 6.3Comment: Specimen 6.0 - 8.3 gm/dL [facility] moderately hemolyzed [facility] Albumin 3.1 (L)Comment: Specimen 3.5 - 5.0 g/dL [facility] moderately hemolyzed [facility] Total Bilirubin 2.0 (H)Comment: Specimen 0.2 - 1.2 mg/dL [facility] hemolyzed [facility] Bilirubin, Direct 1.2 (H)Comment: Specimen 0.1 - 0.5 mg/dL [facility] moderately hemolyzed [facility] Alkaline Phosphatase 193 (H) 40 - 150 U/L [facility] ER AST 134 (H)Comment: Specimen 5 - 34 U/L [facility] moderately hemolyzed [facility] ALT 44Comment: Specimen 6 - 55 U/L [facility] moderately hemolyzed [facility] Specimen Blood Performing Organization Address City/[facility]/Zipcode Phone Number [address] [address] JONES Basic metabolic panel (10/18/2019 4:31 AM [employer])Only the most recent of9 results within the time period is included. Sodium 132 (L) 136 - 145 meq/L [facility] Potassium 4.0Comment: Specimen 3.5 - 5.1 meq/L [facility] moderately hemolyzed [facility] Chloride 103 98 - 107 meq/L [facility] CO2 23 22 - 29 meq/L [facility] BUN <2 (L) 7 - 21 mg/dL [facility] Creatinine 0.57Comment: Specimen 0.57 - 1.25 mg/dL [facility] moderately hemolyzed [facility] Glucose 94 70 - 105 mg/dL [facility] Calcium 8.5 8.4 - 10.2 mg/dL [facility] EGFR 112Comment: ESTIMATED GFR IS mL/min/1.73 sq m [facility] NOT ACCURATE CREATININE [facility] CLEARANCE IN PREDICTING GLOMERULAR FILTRATION RATE. ESTIMATED GFR IS NOT APPLICABLE FOR DIALYSIS PATIENTS. Specimen Blood Performing Organization Address City/State/Zipcode Phone Number [facility] [address] [place] [address] CENTER US abdomen complete (10/17/2019 11:41 AM [employer]ER)Only the most recent of2 results within the time period is included. Specimen Narrative Performed At FINAL REPORT [facility] TECHNIQUE: Grayscale ultrasound of the emmy purdy. INDICATION: assess biliary ducts, patien t here with acute pancreatitis. COMPARISON: Ultrasound from 09/14/2019. FINDINGS: MIDLINE VASCULATURE: The visualized infe rior vena cava is unremarkable. The aorta was unable to be visualized due to overlying bowel gas. LIVER: The liver is mildly enlarged at 1 7.5 cm in right hepatic lobe length with increased echogenicity. Smoo th liver contour. No focal lesions. The main portal vein is patent and measures 0.8 cm in diameter. Purulent fluid in the main por blanka vein. BILIARY: Gallbladder: Prior cholecystectomy Common bile duct measures 0.4 cm, within normal limits. No intrahepatic biliary ductal dilatation. PANCREAS: Not visualized due to overlyin g bowel gas. SPLEEN: No splenomegaly. The spleen iqra ures 8.3 cm in length. PERITONEUM: No free fluid. KIDNEYS: Normal in size bilaterally. No hydronephrosis. No sonographically evident solid mass lesio n. IMPRESSION: 1.No intra or extrahepatic biliary ducta l dilation. 2.Hepatomegaly with diffuse fatty infilt ration of the liver. 3.The pancreas was not visualized due to overlying bowel gas. Signed: Ta Feliciano MD Report Verified Date/Time:10/17/2019 19:18:58 Reading Location: [facility] B1 C013Y CT Body R eading Room Procedure Note Interface, External Ris In - 10/17/2019 7:21 PM [employer] FINAL REPORT TECHNIQUE: Grayscale ultrasound of the a bdsteve. INDICATION: assess biliary ducts, patien t here with acute pancreatitis. COMPARISON: Ultrasound from 09/14/2019. FINDINGS: MIDLINE VASCULATURE: The visualized infe rior vena cava is unremarkable. The aorta was unable to be visualized due to overlying bowel gas. LIVER: The liver is mildly enlarged at 1 7.5 cm in right hepatic lobe length with increased echogenicity. Smoo th liver contour. No focal lesions. The main portal vein is patent and measures 0.8 cm in diameter. Purulent fluid in the main por blanka vein. BILIARY: Gallbladder: Prior cholecystectomy Common bile duct measures 0.4 cm, within normal limits. No intrahepatic biliary ductal dilatation. PANCREAS: Not visualized due to overlyin g bowel gas. SPLEEN: No splenomegaly. The spleen iqra ures 8.3 cm in length. PERITONEUM: No free fluid. KIDNEYS: Normal in size bilaterally. No hydronephrosis. No sonographically evident solid mass lesio n. IMPRESSION: 1.No intra or extrahepatic biliary ducta l dilation. 2.Hepatomegaly with diffuse fatty infilt ration of the liver. 3.The pancreas was not visualized due to overlying bowel gas. Signed: Ta Feliciano MD Report Verified Date/Time: 10/17/2019 1 9:18:58 Reading Location: [facility] B1 C013Y CT Body R eading Room Performing Organization Address [facility] Cent[facility]ode Phone Number GE RIS Lipid panel (10/16/2019 5:34 AM [employer]CE [employer]ER)Only the most recent of2 resultswithin the time period is included. Triglycerides 124 mg/dL [facility] Cholesterol 188 mg/dL [facility] HDL 61 mg/dL [facility] LDL Calculated 102 mg/dL [facility] Specimen Blood Narrative Performed At Triglyceride Reference Range: [facility] Low Risk <150 [id number] High Risk 200-499 Very High Risk>=500 Cholesterol Reference Range: Low Risk <200 [id number] High Risk>240 HDL Cholesterol Reference Range: Low Risk >=60 High Risk <40 LDL Cholesterol Reference Range: Optimal<100 Near [id number] Very High >=190 Performing Organization Address [facility] Centerconc Phone Number [address] [phone] CENTER Lactic acid, venous (10/15/2019 9:21 PM [employer]ER) Lactate, Venous 1.1Comment: Specimen 0.5 - 2.2 mmol/L [facility] slightly hemolyzed [facility] Specimen Blood Performing Organization Address [facility] Phone Number [address] [phone] CENTER Lipase (10/15/2019 9:21 PM [employer]ER)Only the most recent of2 resultswithin the time period is included. Lipase 235 (H) 8 - 78 U/L [facility] Specimen Blood Performing Organization Address [facility] Centercode Phone Number [address] [address] CENTER Magnesium (09/15/2019 5:08 AM CDT)Only the most recent of3 resultswithin the time period is included. Magnesium 1.9 1.6 - 2.6 mg/dL [facility] Specimen Blood Performing Organization Address City/State/Zipcode Phone Number [facility] [address] [place] [address] CENTER MR abdomen without & with IV contrast (09/14/2019 9:10 PM CDT) Specimen Narrative Performed At FINAL REPORT [facility] MRI of the abdomen, MRCP. CLINICAL HISTORY: Epigastric pain. Michelle rn for pancreatic pseudocyst. MRCP to evaluate the rectal hyperbilirub inemia. COMPARISON STUDY: Ultrasound dated 2018. TECHNIQUE: Multiplanar, multisequence im ages of the abdomen were acquired both pre and post administratio n of intravenous gadolinium. 3-dimensional reconstructions were acqui red and utilized by the dictating radiologist at the time of int erpretation. FINDINGS: No pleural effusion is seen. T he liver is markedly fatty in nature. Post administration of intraveno us gadolinium in a dynamic fashion, no suspicious enhancing masses. However, portions of the liver are not imaged on the dynamic scan as a pancreatic protocol was performed. The portal vein is patent debra suring 8 mm. The spleen, kidneys and adrenal glands a re unremarkable. No focal pancreatic abnormality is seen. The tail is short in caliber. There is no evidence of pancreatitis, pancreat ic mass or pancreatic pseudocyst. There are no dilated loops of bowel seen to suggest obstruction. No ascites is seen. There is no suspicious adenopathy. The aorta is normal in caliber. MRCP demonstrates postcholecystectomy ch anges. The CBD is normal in caliber measuring 5 mm. No choledocholit hiasis is seen. No pancreatic ductal dilatation is identified. The visualized osseous structures demons trate a levorotoscoliosis of the lumbar spine. IMPRESSION: 1. Markedly fatty liver. 2. Short pancreatic tail. No other focal pancreatic abnormality. No pseudocyst seen. 3. Status post cholecystectomy with no e vidence of biliary or pancreatic ductal dilatation. Signed: Yoshi Sesay MD Report Verified Date/Time:09/14/2019 23:05:19 Reading Location: [address] Procedure Note Interface, External Ris In - 09/14/2019 11:07 PM CDT FINAL REPORT MRI of the abdomen, MRCP. CLINICAL HISTORY: Epigastric pain. Michelle rn for pancreatic pseudocyst. MRCP to evaluate the rectal hyperbilirub inemia. COMPARISON STUDY: Ultrasound dated 2018. TECHNIQUE: Multiplanar, multisequence im ages of the abdomen were acquired both pre and post administratio n of intravenous gadolinium. 3-dimensional reconstructions were acqui red and utilized by the dictating radiologist at the time of int erpretation. FINDINGS: No pleural effusion is seen. T he liver is markedly fatty in nature. Post administration of intraveno us gadolinium in a dynamic fashion, no suspicious enhancing masses. However, portions of the liver are not imaged on the dynamic scan as a pancreatic protocol was performed. The portal vein is patent debra suring 8 mm. The spleen, kidneys and adrenal glands a re unremarkable. No focal pancreatic abnormality is seen. The tail is short in caliber. There is no evidence of pancreatitis, pancreat ic mass or pancreatic pseudocyst. There are no dilated loops of bowel seen to suggest obstruction. No ascites is seen. There is no suspicious adenopathy. The aorta is normal in caliber. MRCP demonstrates postcholecystectomy ch anges. The CBD is normal in caliber measuring 5 mm. No choledocholit hiasis is seen. No pancreatic ductal dilatation is identified. The visualized osseous structures demons trate a levorotoscoliosis of the lumbar spine. IMPRESSION: 1. Markedly fatty liver. 2. Short pancreatic tail. No other focal pancreatic abnormality. No pseudocyst seen. 3. Status post cholecystectomy with no e vidence of biliary or pancreatic ductal dilatation. Signed: Yoshi Sesay MD Report Verified Date/Time: 09/14/2019 2 3:05:19 Reading Location: [facility] [address] [place] [address] Performing Organization Address City/State/Zipcode Phone Number [facility] CBC (Hemogram only) (09/14/2019 3:51 AM CDT) WBC 5.5 3.5 - 10.5 K/L [facility] RBC 3.79 (L) 3.93 - 5.22 M/L [facility] Hemoglobin 12.6 11.2 - 15.7 GM/DL [facility] Hematocrit 37.7 34.1 - 44.9 % [facility] MCV 99.5 (H) 79.4 - 94.8 fL [facility] MCH 33.2 (H) 25.6 - 32.2 pg [facility] MCHC 33.4 32.2 - 35.5 GM/DL [facility] RDW 15.3 (H) 11.7 - 14.4 % [facility] Platelets 140 (L) 150 - 450 K/CU MM [facility] MPV 11.8 9.4 - 12.3 fL [facility] nRBC 0 0 - 0 /[address] [facility] Specimen Blood Performing Organization Address City/State/Zipcode Phone Number [address] [address] [place] Hepatitis panel, acute (09/13/2019 6:29 AM CDT) Hep A IgM Nonreactive Nonreactive [facility] Hep B C IgM Nonreactive Nonreactive [facility] Hepatitis C Ab Nonreactive Nonreactive [facility] HBsAg Screen Nonreactive Nonreactive [facility] Specimen Blood Performing Organization Address City/[facility]/Zipcode Phone Number [address] [address] CENTER after 07/06/2019 Advance Directives For more information, please contact:[address] [phone] Code Status Date Activated Date Inactivated Comments Full Code 10/15/2019 8:10 PM 10/20/2019 2:09 PM This code status was determined by: Patient Full Code 09/13/2019 5:26 AM 09/16/2019 10:31 PM This code status was determined by: Patient
--- OUTSIDE RECORDS SUMMARY | 2020-07-06 00:51 | XMS REPORT | Continuity of Care Document ---
:1970 Author Organization [facility] t Address [address] [place] [id number] Care Team Providers Name Role Phone Pcp Primary Care Physician Unavailable Isabel SHAH Attending Clinician Joanie Gupta MD Attending Clinician Herminia Rocha MD Attending Clinician Juana SHAH Attending Clinician ISABEL Attending Clinician Unavailable Say Rain MD Attending Clinician JOANIE GUPTA Attending Clinician Unavailable JOANIE GUPTA Admitting Clinician Unavailable SAY RAIN Admitting Clinician Unavailable Problems Condition Condition Condition Status Onset Resolution Last Treating Co mments Source Name Details Category Date Date Treatment Clinician Date Acute Acute Disease Active 2018-[address] [facility] pancreatit pancreatit 2-02 Yuliana kes - is is 00:00: Medical 00 [place] Pseudocyst Pseudocyst Disease Active 2018-[address] [facility] of 12-15 [facility] pancreas pancreas 00:00: Medica l 00 Center Intractabl Intractabl Disease Active 2018-[address] e vomiting e vomiting 0-28 Yuliana kes - with with 00:00: Medical nausea nausea 00 Center Epigastric Epigastric Disease Active 2018-[address] pain pain 0-28 [facility] - 00:[facility]: Medical 00 Center Alcohol Alcohol Disease Active 2018-[address] [facility] abuse abuse 0-28 [facility] - 00:00: Medical 00 Center Other Other Disease Active 2018-[address] [facility] specified specified 0-28 [facility] - hypothyroi hypothyroi 00:00: Me dical dism dism 00 Center Allergies, Adverse Reactions, Alerts Allergy Allergy Status Severity Reaction(s) Onset Inactive Treating Comm ents Source Name Type Date Date Clinician Morphine Propensi Active Itching 2018-11 [facility] - adverse 00:00: Medical reaction 00 [place] [facility] Sulfa Propensi Active Swelling 2018-[address] [facility] [address] (Sulfona ty to 0-28 [facility] - mide adverse 00:00: Medical Antibiot reaction 00 [facility] ics) s Tramadol Propensi Active Nausea And 2018-[address] to Vomiting 0-28 [facility] - adverse 00:00: Medical reaction 00 [place] Family History Family Member Diagnosis Comments Start Date Stop Date Source Natural father Cancer [facility] Natural mother Heart disease [facility] Social History Social Habit Start Date Stop Date Quantity Comments Source Sex Assigned At [facility] Cigarettes smoked 2019-09-13 2019-09-13 [facility] - current (pack per 00:00:00 00:00:00 [facility] Center day) - Reported Cigarette 2019-09-13 2019-09-13 [facility] - pack-years 00:00:00 00:00:00 [facility] Alcohol Comment 2019-09-13 2019-09-13 3-4 drinks every [facility] - 00:00:00 00:00:00 other day for Medical [address]essa ter two years Smoking Status Start Date Stop Date Source Former smoker 2019-09-13 00:00:00 2019-09-13 00:00:00 [facility] Medications Ordered Filled Start Stop Current Ordering Indication Dosage Frequency Signature Comments Components Source Medication Medication Date Date Medication? Clinician (SIG) Name Name multivitami 2018-11- No 1{tbl} QD Take [address] n 2- 12-03 tablet by Darlene - (THERAGRAN) 00:00: 23:59 mouth Medi ba tablet 00 :00 daily. Center thiamine 2018-11 2020- No 100mg QD Take 1 [facility] 100 MG 2-04 01-03 tablet [facility] - tablet 00:00: 23:59 (100 mg Medical 00 :00 total) by [place] mouth daily for 30 days. HYDROcodone 2018-11- No 1{tbl} Take [address] -acetaminop 2- 12-14 tablet by Yuliana ramirez (NORCO 00:00: 23:59 mouth Medic al 5-325) 00 :00 every 8 Center 5-325 mg (eight) per tablet hours as needed for up to 10 days. Max Daily Amount: 3 tablets LORazepam 2018-11- No 1mg Take 1 [facility] (ATIVAN) 1 2- tablet (1 Hema es - MG tablet 00:00: 23:59 mg total) Me dical 00 :00 by mouth Center every 12 (twelve) hours as needed for Anxiety for up to 5 days. Max Daily Amount: 2 mg multivitami 2018-11- No 1{tbl} QD Take [address] n 11-17 tablet by Darlene - (THERAGRAN) 00:00: 00:00 mouth Medi ba tablet 00 :00 daily for Center 30 days. potassium 2018-11- No 40meq QD Take [address] chloride SA 11-17 tablets Luulises s - (K-DUR,KLOR 00:00: 00:00 (40 mEq Me dical -CON) 20 00 :00 total) by Center MEQ tablet mouth daily for 30 days. thiamine 2018-11- No 100mg QD Take 1 [facility] 100 MG 11-17 tablet [facility] - tablet 00:00: 00:00 (100 mg Medical 00 :00 total) by Center mouth daily for 30 days. ondansetron 2018-11 Yes 4mg Take [address] [facility] (ZOFRAN-ODT 0-31 tablet (4 Hema es - ) 4 MG 00:00: mg total) Medica l disintegrat 00 by mouth Cent er ing tablet every 6 (six) hours as needed for Nausea. THERA 400 2018-11- No TAKE 1 [facility] t mcg Tab 0- 12- TABLET BY Darlene - 00:00: 00:00 MOUTH ONCE Medica l 00 :00 DAILY FOR Center 30 DAYS HYDROcodone 2018-11- No 1{tbl} Take [address] -acetaminop 0-31 11-10 tablet by Yuliana ramirez (NORCO 00:00: 23:59 mouth Medic al 5-325) 00 :00 every 6 Center 5-325 mg (six) per tablet hours as needed for up to 10 days. Max Daily Amount: 4 tablets LORazepam 2018-11- No 1mg Take 1 [facility] (ATIVAN) 1 - 11-05 tablet (1 Hema es - MG tablet 00:00: 23:59 mg total) Me dical 00 :00 by mouth Center every 12 (twelve) hours as needed for Anxiety for up to 5 days. Max Daily Amount: 2 mg levothyroxi 2018-11 Yes 100ug Take [address] ne 0-28 mcg by [facility] - (SYNTHROID, 05:02: mouth Medic al LEVOTHROID) 20 Every Center 100 MCG morning on tablet an empty stomach. dicyclomine 2018-11 Yes 10mg [id number] Take [address] (BENTYL) 10 0-28 [id number] by mouth 3 [facility] - MG capsule 05:02: 3D (three) Medi ba 20 times Center daily. propranolol 2018-11 Yes 10mg Q.5D Take [address] (INDERAL) 0-28 by mouth 2 Luke [facility] - 10 MG 05:02: (two) Medical tablet 20 times Center daily. folic acid 2018-11 Yes 1mg QD Take [address] (FOLVITE) 1 0-28 by mouth [facility] - MG tablet 05:02: daily. Medica l 20 [place] omeprazole 2018-11 Yes 40mg QD Take [address] (PRILOSEC) 0-28 by mouth [facility] - 40 MG 05:02: daily. Medical capsule 20 [place] DULoxetine 2018-11 Yes 60mg QD Take [address] (CYMBALTA) 0-28 by mouth [facility] - 60 MG 05:02: daily. Medical capsule 20 [place] estradiol 2018-11 Yes 2mg QD Take [address] (ESTRACE) 2 0-28 by mouth [facility] - MG tablet 05:02: daily. Medica l 19 [place] ondansetron 2019- No 1{tbl} Take [address] (ZOFRAN-ODT 9-25 10-31 tablet by Yuliana murrell - ) 4 MG 00:00: 00:00 mouth Medical disintegrat 00 :00 every 6 Cente r ing tablet (six) hours as needed for Nausea. Immunizations Ordered Immunization Filled Immunization Date Status Commen ts Source Name Name Pneumococcal 2019-10-[address] [facility] - Conjugate (Prevnar) 00:00:00 Medic al [place] 13-Valent Vital Signs Vital Name Observation Time Observation Value Comments Source Systolic blood 2019-10-20 08:35:00 92 mm[Hg] [facility] Diastolic blood 2019-10-20 08:35:00 53 mm[Hg] [facility] Heart rate 2019-10-20 08:35:00 80 /min [facility] Body temperature 2019-10-20 08:35:00 36.39 Tessa [facility] Respiratory rate 2019-10-20 08:35:00 18 /min [facility] Oxygen saturation in 2019-10-20 08:35:00 98 /min [facility] Arterial blood by Medical Ce nter Pulse oximetry Body weight Measured 2019-10-15 23:50:00 92.488 kg [facility] BMI 2019-10-15 23:50:00 29.26 kg/m2 [facility] Body height 2019-10-15 19:26:00 177.8 cm [facility] Procedures Procedure Date / Time Performed Performing Clinician Keon vincent BASIC METABOLIC PANEL 2019-10-18 04:31:00 Anurag Gupta [address] HEPATIC FUNCTION PANEL 2019-10-18 04:31:00 Chanell Rocha [facility] CBC W/PLT COUNT & AUTO 2019-10-18 04:31:00 Anurag Gupta [facility] - DIFFERENTIAL [facility] BASIC METABOLIC PANEL 2019-10-17 15:44:00 Chanell Rocha [facility] ([address] [place] [address] US ABDOMEN COMPLETE 2019-10-17 11:41:00 Danielle Portillo [facility] BASIC METABOLIC PANEL 2019-10-17 06:19:00 Anurag Gupta [facility] [address] CBC W/PLT COUNT & AUTO 2019-10-17 06:19:00 Anurag Gupta [facility] - DIFFERENTIAL [facility] BASIC METABOLIC PANEL 2019-10-16 17:11:00 Chanell Rocha [address] BASIC METABOLIC PANEL 2019-10-16 05:34:00 Anurag Gupta [address] LIPID PANEL 2019-10-16 05:34:00 Anurag Gupta [facility] CBC W/PLT COUNT & AUTO 2019-10-16 05:34:00 Anurag Gupta [facility] BASIC METABOLIC PANEL 2019-10-15 21:21:00 Anurag Gupta [facility] () [facility] LIPASE 2019-10-15 21:21:00 Dennis [facility] LACTIC ACID, VENOUS 2019-10-15 21:21:00 Anurag Gupta [facility] HEPATIC FUNCTION PANEL 2019-10-15 21:21:00 [facility] CBC W/PLT COUNT & AUTO 2019-10-15 21:21:00 Anurag Gupta [facility] BASIC METABOLIC PANEL 2019-09-15 05:08:00 Cherelle Rain [facility] () [facility] MAGNESIUM 2019-09-15 05:08:00 April Cherelleasher Munguia [facility] HEPATIC FUNCTION PANEL 2019-09-15 05:08:[address] [facility] MR ABDOMEN WITH & 2019-09-14 21:10:00 Nai Diazin [facility] es - WITHOUT IV CONTRAST Medical Cent er LIPID PANEL 2019-09-14 03:51:00 JoeCornel [facility] BASIC METABOLIC PANEL 2019-09-14 03:51:00 Cherelle Rain [facility] () [facility] MAGNESIUM 2019-09-14 03:51:00 AprilCherelle Say [facility] HEPATIC FUNCTION PANEL 2019-09-14 03:51:00 Cherelle Rain CH [facility] CBC (HEMOGRAM ONLY) 2019-09-14 03:51:00 Cherelle Rain [facility] US ABDOMEN COMPLETE 2019-09-14 02:22:00 Arif, Sahar [facility] BASIC METABOLIC PANEL 2019-09-13 06:29:00 Cherelle Rain [facility] (7) [facility] MAGNESIUM 2019-09-13 06:29:00 Cherelle Rain [facility] HEPATIC FUNCTION PANEL 2019-09-13 06:29:00 Cherelle Rain I [facility] HEPATITIS PANEL, ACUTE 2019-09-13 06:29:00 Cherelle Rain I [facility] LIPASE 2019-09-13 06:29:00 Cherelle Rain [facility] CBC W/PLT COUNT & AUTO 2019-09-13 06:29:00 Cherelle Rain [facility] Plan of Care Planned Activity Planned Date Details Comments Source Future Scheduled 2020-07-18 INFLUENZA VACCINE (#1) [facility] Test 00:00:00 [code = INFLUENZA Medical Ce nter VACCINE (#1)] Future Scheduled 2019-12-[address] [facility] - Test 00:00:00 2-64 YEARS AT RISK (1 Medica l Center of 1 - PPSV23) [code = PNEUMOCOCCAL VACCINE 2-64 YEARS AT RISK (1 of 1 - PPSV23)] Future Scheduled [address] [facility] - Test 00:00:00 [facility] cerv[facility]procedure) [code = 913625540] Future Scheduled [address] [facility]ema es - Test 00:00:00 malignant neoplasm of Medica l Center breast (procedure) [code = 216268942] Future Scheduled [address]ema es - Test 00:00:00 malignant neoplasm of Medica l Center colon (procedure) [code = 382887675] Results Test Description Test Time Test Comments Results Result Comments Source Basic metabolic panel 2019-10-18 06:56:00 Test Item Value Reference Range Interpretation Comme nts Sodium (test code = 2951-2) 132 meq/L 136-145 L Potassium (test code = 2823-3) 4.0 meq/L 3.5-5.1 Specimen moderately hemolyzed Chloride (test code = 2075-0) 103 meq/L 98-107 CO2 (test code = 2028-9) 23 meq/L 22-29 BUN (test code = 3094-0) <2 7-21 L Creatinine (test code = 0.57 mg/dL 0.57-1.25 Spec imen moderately 2160-0) hemolyzed Glucose (test code = 2345-7) 94 mg/dL 70-105 Calcium (test code = 23264-8) 8.5 mg/dL 8.4-10.2 EGFR (test code = 65544-3) 112 mL/min/1.73 sq m ESTIMATED GFR IS NOT ACCURATE CRE ATININE CLEARANCE IN [place] EDICTING GLOMERULAR FILT RATION RATE. ESTIMATED GFR IS NOT APPLICABLE FOR DIALYSIS PATIEN TS. Lab Interpretation (test code Abnormal = 85992-7) [facility] MET[facility]OLIC [id number] 06:56:00 Test Item Value Reference Range Interpretation Comments SODIUM (BEAKER) 132 meq/L 136-145 L (test code = 381) POTASSIUM (BEAKER) 4.0 meq/L 3.5-5.1 Specimen moderately (test code = 379) hemolyzed CHLORIDE (BEAKER) 103 meq/L 98-107 (test code = 382) CO2 (BEAKER) (test 23 meq/L 22-29 code = 355) BLOOD UREA NITROGEN < mg/dL 7-21 L (BEAKER) (test code = 354) CREATININE (BEAKER) 0.57 mg/dL 0.57-1.25 Specimen moderately (test code = 358) hemolyzed GLUCOSE RANDOM 94 mg/dL 70-105 (BEAKER) (test code = 652) CALCIUM (BEAKER) 8.5 mg/dL 8.4-10.2 (test code = 697) EGFR (BEAKER) (test 112 mL/min/1.73 ESTIM ATED GFR IS code = 1092) sq m NOT ACCURATE CREATININE CLEARANCE IN PREDICTING GLOMERULAR FILTRATION RATE . ESTIMATED GFR I S NOT APPLICABLE FOR DIALYSIS PATIEN TS. Hepatic function [id number] 06:38:00 Test Item Value Reference Range Interpretation Comments Protein, Total (test 6.3 6.0- 8.3 gm/dL Speci men moderately code = 2885-2) hemolyzed Albumin (test code = 3.1 g/dL 3.5-5 L Specime n moderately 04947-6) hemolyzed Total Bilirubin (test 2.0 mg/dL 0.2-1.2 H Specim en moderately code = 1975-2) hemolyzed Bilirubin, Direct (test 1.2 mg/dL 0.1-0.5 H Spec imen moderately code = 1968-7) hemolyzed Alkaline Phosphatase 193 U/L 40-150 H (test code = 6768-6) AST (test code = 1920-8) 134 U/L 5-34 H Spe cimen moderately hemolyzed ALT (test code = 1742-6) 44 U/L 6-55 Spe cimen moderately hemolyzed Lab Interpretation (test Abnormal code = 92308-0) [facility] [id number] 06:38:00 Test Item Value Reference Range Interpretation Comments TOTAL PROTEIN (BEAKER) 6.3 gm/dL 6.0-8.3 Speci men moderately (test code = 770) hemolyzed ALBUMIN (BEAKER) (test 3.1 g/dL 3.5-5.0 L Speci men moderately code = 1145) hemolyzed BILIRUBIN TOTAL 2.0 mg/dL 0.2-1.2 H Specimen mod erately (BEAKER) (test code = hemoly zed 377) BILIRUBIN DIRECT 1.2 mg/dL 0.1-0.5 H Specimen mo derately (BEAKER) (test code = hemoly zed 706) ALKALINE PHOSPHATASE 193 U/L 40-150 H (BEAKER) (test code = 346) AST (SGOT) (BEAKER) 134 U/L 5-34 H Specimen moderately (test code = 353) hemolyzed ALT (SGPT) (BEAKER) 44 U/L 6-55 Specimen moderately (test code = 347) hemolyzed CBC with platelet count + automated [id number] 05:51:00 Test Item Value Reference Range Interpretation Comments WBC (test code = 6690-2) 4.4 3.5- 10.5 K/L RBC (test code = 789-8) 3.58 3.93- 5.22 M/L L MCHC (test code = 786-4) 34.8 32.2- 35.5 GM/DL Hematocrit (test code = 4544-3) 35.9 % 34.1-44.9 MCV (test code = 787-2) 100.3 fL 79.4-94.8 H MCH (test code = 785-6) 34.9 pg 25.6-32.2 H RDW (test code = 788-0) 16.1 % 11.7-14.4 H Platelets (test code = 777-3) 85 150- 450 K/CU MM L MPV (test code = 48209-1) 13.6 fL 9.4-12.3 H nRBC (test code = 413) 1 0- 0 /100 WBC H % Neutros (test code = 429) 44 % % Lymphs (test code = 430) 29 % % Monos (test code = 431) 20 % % Eos (test code = 432) 3 % % Baso (test code = 437) 2 % # Neutros (test code = 670) 1.91 1.56- 6.13 K/L # Lymphs (test code = 414) 1.28 1.18- 3.74 K/L # Monos (test code = 415) 0.88 0.24- 0.36 K/L H # Eos (test code = 416) 0.12 0.04- 0.36 K/L # Baso (test code = 417) 0.09 0.01- 0.08 K/L H Immature Granulocytes-Relative 2 % 0-1 H (test code = 2801) Lab Interpretation (test code = Abnormal 14869-9) [facility] W/PLT COUNT & AUTO [id number] 05:51:00 Test Item Value Reference Range Interpretation Comments WHITE BLOOD CELL COUNT (BEAKER) 4.4 K/ L 3.5-10.5 (test code = 775) RED BLOOD CELL COUNT (BEAKER) 3.58 M/ L 3.93-5.22 L (test code = 761) HEMOGLOBIN (BEAKER) (test code = 12.5 GM/DL 11.2-15.7 410) HEMATOCRIT (BEAKER) (test code = 35.9 % 34.1-44.9 411) MEAN CORPUSCULAR VOLUME (BEAKER) 100.3 fL 79.4-94.8 H (test code = 753) MEAN CORPUSCULAR HEMOGLOBIN 34.9 pg 25.6-32.2 H (BEAKER) (test code = 751) MEAN CORPUSCULAR HEMOGLOBIN CONC 34.8 GM/DL 32.2-35.5 (BEAKER) (test code = 752) RED CELL DISTRIBUTION WIDTH 16.1 % 11.7-14.4 H (BEAKER) (test code = 412) PLATELET COUNT (BEAKER) (test code 85 K/CU MM 150-450 L = 756) MEAN PLATELET VOLUME (BEAKER) 13.6 fL 9.4-12.3 H (test code = 754) NUCLEATED RED BLOOD CELLS (BEAKER) 1 /100 WBC 0-0 H (test code = 413) NEUTROPHILS RELATIVE PERCENT 44 % (BEAKER) (test code = 429) LYMPHOCYTES RELATIVE PERCENT 29 % (BEAKER) (test code = 430) MONOCYTES RELATIVE PERCENT 20 % (BEAKER) (test code = 431) EOSINOPHILS RELATIVE PERCENT 3 % (BEAKER) (test code = 432) BASOPHILS RELATIVE PERCENT 2 % (BEAKER) (test code = 437) NEUTROPHILS ABSOLUTE COUNT 1.91 K/ L 1.56-6.13 (BEAKER) (test code = 670) LYMPHOCYTES ABSOLUTE COUNT 1.28 K/ L 1.18-3.74 (BEAKER) (test code = 414) MONOCYTES ABSOLUTE COUNT (BEAKER) 0.88 K/ L 0.24-0.36 H (test code = 415) EOSINOPHILS ABSOLUTE COUNT 0.12 K/ L 0.04-0.36 (BEAKER) (test code = 416) BASOPHILS ABSOLUTE COUNT (BEAKER) 0.09 K/ L 0.01-0.08 H (test code = 417) IMMATURE GRANULOCYTES-RELATIVE 2 % 0-1 H PERCENT (BEAKER) (test code = 2801) U/S, ABDOMINAL, [id number] 19:18:00Reason for exam:->assess biliary ducts, patient here with acute pancreatitisFINAL REPORT TECHNIQUE: Grayscale ultrasound of the abdomen. INDICATION: assess biliary ducts, patient here with acute pancreatitis. COMPARISON: Ultrasound from 09/14/2019. FINDINGS: MIDLINE VASCULATURE: The visualized inferior vena cava is unremarkable. The aorta was unable ruperto visualized due to overlying bowel gas. LIVER: The liver is mildly enlarged at 17.5 cm in right hepatic lobe length with increased echogenicity. Smooth liver contour. No focal lesions. The main portal vein is patent and measures 0.8 cm in diameter. Purulent fluid in the main portal vein. BILIARY:Gallbladder: Prior cholecystectomyCommon bile duct measures 0.4 cm, within normal limits. No intrahepatic biliary ductal dilatation. PANCREAS: Not visualized due to overlying bowel gas. SPLEEN: No splenomegaly. The spleen measures 8.3 cm in length. PERITONEUM: No free fluid. KIDNEYS: Normal in size bilaterally. No hydronephrosis. No sonographically evident solid mass lesion. IMPRESSION: 1.No intra or extrahepatic biliary ductal dilation. 2.Hepatomegaly with diffuse fatty infiltration of the liver. 3.The pancreas was not visualized due to overlying bowel gas. Signed: Ta Feliciano MDReport Verified Date/Time: 10/17/2019 19:18:58 Reading Location: [address] Body Reading Room US abdomen [id number] 19:18:00Interface, External Ris In - 10/17/2019 7:21 PM CSTFINAL REPORT TECHNIQUE: Grayscale ultrasound of the abdomen. INDICATION: assess biliary ducts, patient here with acute pancreatitis. COMPARISON: Ultrasound from 09/14/2019. FINDINGS: MIDLINE VASCULATURE: The visualized inferior vena cava is unremarkable. The aorta was unable to be visualized due to overlying bowel gas. LIVER:The liver is mildly enlarged at 17.5 cm in right hepatic lobe length with increased echogenicity. Smooth liver contour. No focal lesions. The main portal vein is patent and measures 0.8 cm in diameter.Purulent fluid in the main portal vein. BILIARY:Gallbladder: Prior cholecystectomyCommon bile duct measures 0.4 cm, within normal limits. No intrahepatic biliary ductal dilatation. PANCREAS: Not visualized due to overlying bowel gas. SPLEEN: No splenomegaly. The spleen measures 8.3 cm in length. PERITONEUM: No free fluid. KIDNEYS: Normal in size bilaterally. No hydronephrosis. No sonographically evident solid mass lesion. IMPRESSION: 1.No intra or extrahepatic biliary ductal dilation. 2.Hepatomegaly with diffuse fatty infiltration of the liver. 3.The pancreas was not visualized due to overlying bowel gas. Signed: Ta Feliciano MDReport Verified Date/Time: 10/17/2019 19:18:58 Reading Location: [facility] C013Y CT [facility] [id number] 16:14:00 Test Item Value Reference Range Interpretation Comments SODIUM (BEAKER) 133 meq/L 136-145 L (test code = 381) POTASSIUM (BEAKER) 3.1 meq/L 3.5-5.1 L (test code = 379) CHLORIDE (BEAKER) 95 meq/L 98-107 L (test code = 382) CO2 (BEAKER) (test 30 meq/L 22-29 H code = 355) BLOOD UREA NITROGEN < mg/dL 7-21 L (BEAKER) (test code = 354) CREATININE (BEAKER) 0.65 mg/dL 0.57-1.25 (test code = 358) GLUCOSE RANDOM 106 mg/dL 70-105 H (BEAKER) (test code = 652) CALCIUM (BEAKER) 9.4 mg/dL 8.4-10.2 (test code = 697) EGFR (BEAKER) (test 96 mL/min/1.73 ESTIMA LUIS GFR IS code = 1092) sq m NOT ACCURATE CREATININE CLEARANCE IN PREDICTING GLOMERULAR FILTRATION RATE . ESTIMATED GFR I S NOT APPLICABLE FOR DIALYSIS PATIEN TS. BASIC METABOLIC [id number] 07:28:00 Test Item Value Reference Range Interpretation Comments SODIUM (BEAKER) 129 meq/L 136-145 L (test code = 381) POTASSIUM (BEAKER) 4.0 meq/L 3.5-5.1 Specimen slightly (test code = 379) hemolyzed CHLORIDE (BEAKER) 96 meq/L 98-107 L (test code = 382) CO2 (BEAKER) (test 26 meq/L 22-29 code = 355) BLOOD UREA NITROGEN < mg/dL 7-21 L (BEAKER) (test code = 354) CREATININE (BEAKER) 0.64 mg/dL 0.57-1.25 Specimen slightly (test code = 358) hemolyzed GLUCOSE RANDOM 101 mg/dL 70-105 (BEAKER) (test code = 652) CALCIUM (BEAKER) 9.3 mg/dL 8.4-10.2 (test code = 697) EGFR (BEAKER) (test 98 mL/min/1.73 ESTIMA LUIS GFR IS code = 1092) sq m NOT ACCURATE CREATININE CLEARANCE IN PREDICTING GLOMERULAR FILTRATION RATE . ESTIMATED GFR I S NOT APPLICABLE FOR DIALYSIS PATIEN TS. CBC W/PLT COUNT & AUTO [id number] 07:01:00 Test Item Value Reference Range Interpretation Comments WHITE BLOOD CELL COUNT (BEAKER) 6.1 K/ L 3.5-10.5 (test code = 775) RED BLOOD CELL COUNT (BEAKER) 3.75 M/ L 3.93-5.22 L (test code = 761) HEMOGLOBIN (BEAKER) (test code = 12.8 GM/DL 11.2-15.7 410) HEMATOCRIT (BEAKER) (test code = 39.4 % 34.1-44.9 411) MEAN CORPUSCULAR VOLUME (BEAKER) 105.1 fL 79.4-94.8 H (test code = 753) MEAN CORPUSCULAR HEMOGLOBIN 34.1 pg 25.6-32.2 H (BEAKER) (test code = 751) MEAN CORPUSCULAR HEMOGLOBIN CONC 32.5 GM/DL 32.2-35.5 (BEAKER) (test code = 752) RED CELL DISTRIBUTION WIDTH 15.9 % 11.7-14.4 H (BEAKER) (test code = 412) PLATELET COUNT (BEAKER) (test code 77 K/CU MM 150-450 L = 756) MEAN PLATELET VOLUME (BEAKER) 12.5 fL 9.4-12.3 H (test code = 754) NUCLEATED RED BLOOD CELLS (BEAKER) 1 /100 WBC 0-0 H (test code = 413) NEUTROPHILS RELATIVE PERCENT 38 % (BEAKER) (test code = 429) LYMPHOCYTES RELATIVE PERCENT 38 % (BEAKER) (test code = 430) MONOCYTES RELATIVE PERCENT 17 % (BEAKER) (test code = 431) EOSINOPHILS RELATIVE PERCENT 3 % (BEAKER) (test code = 432) BASOPHILS RELATIVE PERCENT 2 % (BEAKER) (test code = 437) NEUTROPHILS ABSOLUTE COUNT 2.33 K/ L 1.56-6.13 (BEAKER) (test code = 670) LYMPHOCYTES ABSOLUTE COUNT 2.31 K/ L 1.18-3.74 (BEAKER) (test code = 414) MONOCYTES ABSOLUTE COUNT (BEAKER) 1.05 K/ L 0.24-0.36 H (test code = 415) EOSINOPHILS ABSOLUTE COUNT 0.16 K/ L 0.04-0.36 (BEAKER) (test code = 416) BASOPHILS ABSOLUTE COUNT (BEAKER) 0.14 K/ L 0.01-0.08 H (test code = 417) IMMATURE GRANULOCYTES-RELATIVE 2 % 0-1 H PERCENT (BEAKER) (test code = 2801) BASIC METABOLIC [id number] 17:34:00 Test Item Value Reference Range Interpretation Comments SODIUM (BEAKER) 131 meq/L 136-145 L (test code = 381) POTASSIUM (BEAKER) 3.4 meq/L 3.5-5.1 L Specimen slightly (test code = 379) hemolyzed CHLORIDE (BEAKER) 94 meq/L 98-107 L (test code = 382) CO2 (BEAKER) (test 29 meq/L 22-29 code = 355) BLOOD UREA NITROGEN < mg/dL 7-21 L (BEAKER) (test code = 354) CREATININE (BEAKER) 0.61 mg/dL 0.57-1.25 Specimen slightly (test code = 358) hemolyzed GLUCOSE RANDOM 108 mg/dL 70-105 H (BEAKER) (test code = 652) CALCIUM (BEAKER) 9.1 mg/dL 8.4-10.2 (test code = 697) EGFR (BEAKER) (test 104 mL/min/1.73 ESTIM ATED GFR IS code = 1092) sq m NOT ACCURATE CREATININE CLEARANCE IN PREDICTING GLOMERULAR FILTRATION RATE . ESTIMATED GFR I S NOT APPLICABLE FOR DIALYSIS PATIEN TS. Recheck when potassium is done runningBASIC METABOLIC [id number] 06:51:00 Test Item Value Reference Range Interpretation Comments SODIUM (BEAKER) 131 meq/L 136-145 L (test code = 381) POTASSIUM (BEAKER) 2.7 meq/L 3.5-5.1 L (test code = 379) CHLORIDE (BEAKER) 95 meq/L 98-107 L (test code = 382) CO2 (BEAKER) (test 27 meq/L 22-29 code = 355) BLOOD UREA NITROGEN < mg/dL 7-21 L (BEAKER) (test code = 354) CREATININE (BEAKER) 0.67 mg/dL 0.57-1.25 (test code = 358) GLUCOSE RANDOM 97 mg/dL 70-105 (BEAKER) (test code = 652) CALCIUM (BEAKER) 9.1 mg/dL 8.4-10.2 (test code = 697) EGFR (BEAKER) (test 93 mL/min/1.73 ESTIMA LUIS GFR IS code = 1092) sq m NOT ACCURATE CREATININE CLEARANCE IN PREDICTING GLOMERULAR FILTRATION RATE . ESTIMATED GFR I S NOT APPLICABLE FOR DIALYSIS [place] TS. Lipid [id number] 06:45:00 Test Item Value Reference Range Interpretation Comments Triglycerides (test 124 mg/dL code = 2571-8) Cholesterol (test code 188 mg/dL = 2093-3) HDL (test code = 61 mg/dL 5-9) LDL Calculated (test 102 mg/dL code = 09180-4) TIRSO (test code = TIRSO) Triglyceride Reference Range: Low Risk <150 Borderline 150-199 High Risk 200-499 Very High Risk >=500 Cholesterol Reference Range: Low Risk <200 Borderline 200-239 High Risk >240 HDL Cholesterol Reference Range: Low Risk >=60 High Risk <40 LDL Cholesterol Reference Range: Optimal <100 Near Optimal 100-129 Borderline 130-159 High 160-189 Very High >=190 [facility] [id number] 06:45:00 Test Item Value Reference Range Interpretation Comments TRIGLYCERIDES (BEAKER) (test code = 124 mg/dL 540) CHOLESTEROL (BEAKER) (test code = 188 mg/dL 631) HDL CHOLESTEROL (BEAKER) (test code 61 mg/dL = 976) LDL CHOLESTEROL CALCULATED (BEAKER) 102 mg/dL (test code = 633) Triglyceride Reference Range: Low Risk <150 Borderline 150-199 High Risk 200-499 Very High Risk >=500Cholesterol Reference Range: Low Risk <200 Borderline 200-239 High Risk >240HDL Cholesterol Reference Range: Low Risk >=60 High Risk <40LDL Cholesterol Reference Range: Optimal <100 Near Optimal 100-129 Borderline 130-159 High 160-189 Very High >=190CBC W/PLT COUNT & AUTO [id number] 06:03:00 Test Item Value Reference Range Interpretation Comments WHITE BLOOD CELL COUNT (BEAKER) 7.7 K/ L 3.5-10.5 (test code = 775) RED BLOOD CELL COUNT (BEAKER) 3.64 M/ L 3.93-5.22 L (test code = 761) HEMOGLOBIN (BEAKER) (test code = 12.4 GM/DL 11.2-15.7 410) HEMATOCRIT (BEAKER) (test code = 35.0 % 34.1-44.9 411) MEAN CORPUSCULAR VOLUME (BEAKER) 96.2 fL 79.4-94.8 H (test code = 753) MEAN CORPUSCULAR HEMOGLOBIN 34.1 pg 25.6-32.2 H (BEAKER) (test code = 751) MEAN CORPUSCULAR HEMOGLOBIN CONC 35.4 GM/DL 32.2-35.5 (BEAKER) (test code = 752) RED CELL DISTRIBUTION WIDTH 14.7 % 11.7-14.4 H (BEAKER) (test code = 412) PLATELET COUNT (BEAKER) (test code 67 K/CU MM 150-450 L = 756) MEAN PLATELET VOLUME (BEAKER) 13.4 fL 9.4-12.3 H (test code = 754) NUCLEATED RED BLOOD CELLS (BEAKER) 0 /100 WBC 0-0 (test code = 413) NEUTROPHILS RELATIVE PERCENT 65 % (BEAKER) (test code = 429) LYMPHOCYTES RELATIVE PERCENT 19 % (BEAKER) (test code = 430) MONOCYTES RELATIVE PERCENT 12 % (BEAKER) (test code = 431) EOSINOPHILS RELATIVE PERCENT 2 % (BEAKER) (test code = 432) BASOPHILS RELATIVE PERCENT 1 % (BEAKER) (test code = 437) NEUTROPHILS ABSOLUTE COUNT 5.05 K/ L 1.56-6.13 (BEAKER) (test code = 670) LYMPHOCYTES ABSOLUTE COUNT 1.49 K/ L 1.18-3.74 (BEAKER) (test code = 414) MONOCYTES ABSOLUTE COUNT (BEAKER) 0.91 K/ L 0.24-0.36 H (test code = 415) EOSINOPHILS ABSOLUTE COUNT 0.12 K/ L 0.04-0.36 (BEAKER) (test code = 416) BASOPHILS ABSOLUTE COUNT (BEAKER) 0.07 K/ L 0.01-0.08 (test code = 417) IMMATURE GRANULOCYTES-RELATIVE 1 % 0-1 PERCENT (BEAKER) (test code = 2801) [id number] 21:50:00 Test Item Value Reference Range Interpretation Comments Lipase (test code = 3040-3) 235 U/L 8-78 H Lab Interpretation (test code = Abnormal 03190-7) [facility] 21:50[facility]00 Test Item Value Reference Range Interpretation Comments LIPASE (BEAKER) (test code = 749) 235 U/L 8-78 H BASIC METABOLIC [id number] 21:50:00 Test Item Value Reference Range Interpretation Comments SODIUM (BEAKER) 134 meq/L 136-145 L (test code = 381) POTASSIUM (BEAKER) 3.1 meq/L 3.5-5.1 L (test code = 379) CHLORIDE (BEAKER) 96 meq/L 98-107 L (test code = 382) CO2 (BEAKER) (test 24 meq/L 22-29 code = 355) BLOOD UREA NITROGEN 2 mg/dL 7-21 L (BEAKER) (test code = 354) CREATININE (BEAKER) 0.70 mg/dL 0.57-1.25 (test code = 358) GLUCOSE RANDOM 119 mg/dL 70-105 H (BEAKER) (test code = 652) CALCIUM (BEAKER) 9.1 mg/dL 8.4-10.2 (test code = 697) EGFR (BEAKER) (test 89 mL/min/1.73 ESTIMA LUIS GFR IS code = 1092) sq m NOT ACCURATE CREATININE CLEARANCE IN PREDICTING GLOMERULAR FILTRATION RATE . ESTIMATED GFR I S NOT APPLICABLE FOR DIALYSIS PATIEN TS. HEPATIC FUNCTION [id number] 21:50:00 Test Item Value Reference Range Interpretation Comments TOTAL PROTEIN (BEAKER) (test code = 6.9 gm/dL 6.0-8.3 770) ALBUMIN (BEAKER) (test code = 1145) 3.6 g/dL 3.5-5.0 BILIRUBIN TOTAL (BEAKER) (test code 2.2 mg/dL 0.2-1.2 H = 377) BILIRUBIN DIRECT (BEAKER) (test 1.5 mg/dL 0.1-0.5 H code = 706) ALKALINE PHOSPHATASE (BEAKER) (test 218 U/L 40-150 H code = 346) AST (SGOT) (BEAKER) (test code = 136 U/L 5-34 H 353) ALT (SGPT) (BEAKER) (test code = 53 U/L 6-55 347) Lactic acid, [id number] 21:44:00 Test Item Value Reference Range Interpretation Comments Lactate, Venous (test 1.1 mmol/L 0.5-2.2 Specim en slightly code = 2872) hemolyzed Lab Interpretation (test Normal code = 74933-7) [facility], [id number] 21:44:00 Test Item Value Reference Range Interpretation Comments LACTATE BLOOD VENOUS 1.1 mmol/L 0.5-2.2 Specime n slightly (2) (BEAKER) (test hemolyzed code = 4392) CBC W/PLT COUNT & AUTO [id number] 21:31:00 Test Item Value Reference Range Interpretation Comments WHITE BLOOD CELL COUNT (BEAKER) 8.7 K/ L 3.5-10.5 (test code = 775) RED BLOOD CELL COUNT (BEAKER) 3.98 M/ L 3.93-5.22 (test code = 761) HEMOGLOBIN (BEAKER) (test code = 13.5 GM/DL 11.2-15.7 410) HEMATOCRIT (BEAKER) (test code = 37.9 % 34.1-44.9 411) MEAN CORPUSCULAR VOLUME (BEAKER) 95.2 fL 79.4-94.8 H (test code = 753) MEAN CORPUSCULAR HEMOGLOBIN 33.9 pg 25.6-32.2 H (BEAKER) (test code = 751) MEAN CORPUSCULAR HEMOGLOBIN CONC 35.6 GM/DL 32.2-35.5 H (BEAKER) (test code = 752) RED CELL DISTRIBUTION WIDTH 14.6 % 11.7-14.4 H (BEAKER) (test code = 412) PLATELET COUNT (BEAKER) (test code 75 K/CU MM 150-450 L = 756) MEAN PLATELET VOLUME (BEAKER) 13.0 fL 9.4-12.3 H (test code = 754) NUCLEATED RED BLOOD CELLS (BEAKER) 0 /100 WBC 0-0 (test code = 413) NEUTROPHILS RELATIVE PERCENT 68 % (BEAKER) (test code = 429) LYMPHOCYTES RELATIVE PERCENT 18 % (BEAKER) (test code = 430) MONOCYTES RELATIVE PERCENT 12 % (BEAKER) (test code = 431) EOSINOPHILS RELATIVE PERCENT 1 % (BEAKER) (test code = 432) BASOPHILS RELATIVE PERCENT 1 % (BEAKER) (test code = 437) NEUTROPHILS ABSOLUTE COUNT 5.93 K/ L 1.56-6.13 (BEAKER) (test code = 670) LYMPHOCYTES ABSOLUTE COUNT 1.57 K/ L 1.18-3.74 (BEAKER) (test code = 414) MONOCYTES ABSOLUTE COUNT (BEAKER) 1.00 K/ L 0.24-0.36 H (test code = 415) EOSINOPHILS ABSOLUTE COUNT 0.04 K/ L 0.04-0.36 (BEAKER) (test code = 416) BASOPHILS ABSOLUTE COUNT (BEAKER) 0.06 K/ L 0.01-0.08 (test code = 417) IMMATURE GRANULOCYTES-RELATIVE 1 % 0-1 PERCENT (BEAKER) (test code = 2801) [id number] 06:09:00 Test Item Value Reference Range Interpretation Comments Magnesium (test code = 42094-5) 1.9 mg/dL 1.6-2.6 Lab Interpretation (test code = Normal 27251-7) [facility] 06:09:00 Test Item Value Reference Range Interpretation Comments MAGNESIUM (BEAKER) (test code = 1.9 mg/dL 1.6-2.6 627) BASIC METABOLIC [id number] 06:09:00 Test Item Value Reference Range Interpretation Comments SODIUM (BEAKER) 134 meq/L 136-145 L (test code = 381) POTASSIUM (BEAKER) 3.2 meq/L 3.5-5.1 L (test code = 379) CHLORIDE (BEAKER) 95 meq/L 98-107 L (test code = 382) CO2 (BEAKER) (test 27 meq/L 22-29 code = 355) BLOOD UREA NITROGEN 3 mg/dL 7-21 L (BEAKER) (test code = 354) CREATININE (BEAKER) 0.75 mg/dL 0.57-1.25 (test code = 358) GLUCOSE RANDOM 94 mg/dL 70-105 (BEAKER) (test code = 652) CALCIUM (BEAKER) 9.4 mg/dL 8.4-10.2 (test code = 697) EGFR (BEAKER) (test 82 mL/min/1.73 ESTIMA LUIS GFR IS code = 1092) sq m NOT ACCURATE CREATININE CLEARANCE IN PREDICTING GLOMERULAR FILTRATION RATE . ESTIMATED GFR I S NOT APPLICABLE FOR DIALYSIS PATIEN TS. HEPATIC FUNCTION [id number] 06:09:00 Test Item Value Reference Range Interpretation Comments TOTAL PROTEIN (BEAKER) (test code = 7.2 gm/dL 6.0-8.3 770) ALBUMIN (BEAKER) (test code = 1145) 3.8 g/dL 3.5-5.0 BILIRUBIN TOTAL (BEAKER) (test code 1.7 mg/dL 0.2-1.2 H = 377) BILIRUBIN DIRECT (BEAKER) (test 1.0 mg/dL 0.1-0.5 H code = 706) ALKALINE PHOSPHATASE (BEAKER) (test 174 U/L 40-150 H code = 346) AST (SGOT) (BEAKER) (test code = 124 U/L 5-34 H 353) ALT (SGPT) (BEAKER) (test code = 41 U/L 6-55 347) MR, ABDOMEN, [id number] 23:05:00FINAL REPORT MRI of the abdomen, MRCP. CLINICAL HISTORY: Epigastric pain. Concern for pancreatic pseudocyst. MRCP to evaluate the rectal hyperbilirubinemia. COMPARISON STUDY: Ultrasound dated September 14, 2019. TECHNIQUE: Multiplanar, multisequence images of the abdomen were acquired both pre and post administration of intravenous gadolinium. 3-dimensional reconstructions were acquired and utilized by the dictating radiologist at the time of interpretation. FINDINGS: No pleural effusion is seen. The liver is markedly fatty [...] dilatation. Signed: Yoshi Sesay MDReport Verified Date/Time: 09/14/2019 23:05:19 Reading Location: [address] Consult Reading Room Electronically signed by: Jose Cruz LOW 09/14/2019 11:05 PMMR abdomen without & with IV [id number] 23:05:00Interface, External Ris In - 09/14/2019 11:07 PM CDTFINAL REPORT MRI of the abdomen, MRCP. CLINICAL HISTORY: Epigastric pain. Concern for pancreatic pseudocyst. MRCP to evaluate the rectal hyperbilirubinemia. COMPARISON STUDY: Ultrasound dated September 14, 2019. TECHNIQUE: Multiplanar, multisequence images of the abdomen were acquired both pre and post administration of intravenous gadolinium. 3-dimensional reconstructions were acquired and utilized by the dictating radiologistat the time of interpretation. FINDINGS: No pleural effusion is seen. The liver is markedly fatty innature. Post administration of intravenous gadolinium in a [...] There are no dilated loops of bowel seento suggest obstruction. No ascites is seen. There is no suspicious adenopathy. The aorta is normal in caliber. MRCP demonstrates postcholecystectomy changes. The CBD is normal in caliber measuring 5 mm. No choledocholithiasis is seen. No pancreatic ductal dilatation is identified. 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 IMPRESSION:1. Markedly fatty liver.2. Short pancreatic tail. No other focal pancreatic abnormality. No pseudocyst seen.3. Status post cholecystectomy with no evidence of biliary or pancreatic ductal dilatation. Signed: Yoshi Sesay MDReport Verified Date/Time: 09/14/2019 23:05:19 Reading Location: [facility] B1 [id number] Consult Reading [facility] 06:51:00 Test Item Value Reference Range Interpretation Comments MAGNESIUM (BEAKER) (test code = 2.0 mg/dL 1.6-2.6 627) BASIC METABOLIC [id number] 06:51:00 Test Item Value Reference Range Interpretation Comments SODIUM (BEAKER) 134 meq/L 136-145 L (test code = 381) POTASSIUM (BEAKER) 3.3 meq/L 3.5-5.1 L (test code = 379) CHLORIDE (BEAKER) 93 meq/L 98-107 L (test code = 382) CO2 (BEAKER) (test 27 meq/L 22-29 code = 355) BLOOD UREA NITROGEN 3 mg/dL 7-21 L (BEAKER) (test code = 354) CREATININE (BEAKER) 0.81 mg/dL 0.57-1.25 (test code = 358) GLUCOSE RANDOM 99 mg/dL 70-105 (BEAKER) (test code = 652) CALCIUM (BEAKER) 9.2 mg/dL 8.4-10.2 (test code = 697) EGFR (BEAKER) (test 75 mL/min/1.73 ESTIMA LUIS GFR IS code = 1092) sq m NOT ACCURATE CREATININE CLEARANCE IN PREDICTING GLOMERULAR FILTRATION RATE . ESTIMATED GFR I S NOT APPLICABLE FOR DIALYSIS PATIEN TS. LIPID [id number] 06:51:00 Test Item Value Reference Range Interpretation Comments TRIGLYCERIDES (BEAKER) (test code = 90 mg/dL 540) CHOLESTEROL (BEAKER) (test code = 227 mg/dL 631) HDL CHOLESTEROL (BEAKER) (test code 85 mg/dL = 976) LDL CHOLESTEROL CALCULATED (BEAKER) 124 mg/dL (test code = 633) Triglyceride Reference Range: Low Risk <150 Borderline 150-199 High Risk 200-499 Very High Risk >=500Cholesterol Reference Range: Low Risk <200 Borderline 200-239 High Risk >240HDL Cholesterol Reference Range: Low Risk >=60 High Risk <40LDL Cholesterol Reference Range: Optimal <100 Near Optimal 100-129 Borderline 130-159 High 160-189 Very High >=190HEPATIC FUNCTION [id number] 06:51:00 Test Item Value Reference Range Interpretation Comments TOTAL PROTEIN (BEAKER) (test code = 7.0 gm/dL 6.0-8.3 770) ALBUMIN (BEAKER) (test code = 1145) 3.9 g/dL 3.5-5.0 BILIRUBIN TOTAL (BEAKER) (test code 2.2 mg/dL 0.2-1.2 H = 377) BILIRUBIN DIRECT (BEAKER) (test 1.4 mg/dL 0.1-0.5 H code = 706) ALKALINE PHOSPHATASE (BEAKER) (test 188 U/L 40-150 H code = 346) AST (SGOT) (BEAKER) (test code = 159 U/L 5-34 H 353) ALT (SGPT) (BEAKER) (test code = 52 U/L 6-55 347) CBC (Hemogram only)2019-09-14 05:02:00 Test Item Value Reference Range Interpretation Comments WBC (test code = 6690-2) 5.5 3.5- 10.5 K/L RBC (test code = 789-8) 3.79 3.93- 5.22 M/L L MCHC (test code = 786-4) 33.4 32.2- 35.5 GM/DL Hematocrit (test code = 4544-3) 37.7 % 34.1-44.9 MCV (test code = 787-2) 99.5 fL 79.4-94.8 H MCH (test code = 785-6) 33.2 pg 25.6-32.2 H RDW (test code = 788-0) 15.3 % 11.7-14.4 H Platelets (test code = 777-3) 140 150- 450 K/CU MM L MPV (test code = 37718-9) 11.8 fL 9.4-12.3 nRBC (test code = 413) 0 0- 0 /100 WBC Lab Interpretation (test code = Abnormal 15314-3) [facility] (HEMOGRAM ONLY)2019-09-14 05:02:00 Test Item Value Reference Range Interpretation Comments WHITE BLOOD CELL COUNT (BEAKER) 5.5 K/ L 3.5-10.5 (test code = 775) RED BLOOD CELL COUNT (BEAKER) 3.79 M/ L 3.93-5.22 L (test code = 761) HEMOGLOBIN (BEAKER) (test code = 12.6 GM/DL 11.2-15.7 410) HEMATOCRIT (BEAKER) (test code = 37.7 % 34.1-44.9 411) MEAN CORPUSCULAR VOLUME (BEAKER) 99.5 fL 79.4-94.8 H (test code = 753) MEAN CORPUSCULAR HEMOGLOBIN 33.2 pg 25.6-32.2 H (BEAKER) (test code = 751) MEAN CORPUSCULAR HEMOGLOBIN CONC 33.4 GM/DL 32.2-35.5 (BEAKER) (test code = 752) RED CELL DISTRIBUTION WIDTH 15.3 % 11.7-14.4 H (BEAKER) (test code = 412) PLATELET COUNT (BEAKER) (test 140 K/CU MM 150-450 L code = 756) MEAN PLATELET VOLUME (BEAKER) 11.8 fL 9.4-12.3 (test code = 754) NUCLEATED RED BLOOD CELLS 0 /100 WBC 0-0 (BEAKER) (test code = 413) U/S, ABDOMINAL, [id number] 04:05:00Reason for exam:->Elevated LFT's FINAL REPORT History: Elevated LFTs Abdominal ultrasound dated 09/14/2019 Comparison: None Comment: Real-time transabdominal ultrasound of the abdomen was performed. Liver: 16.5 cm , upper limits of normal. Elevated parenchymal echogenicity, suggesting steatosis. No focal lesions. Gallbladder: Absent. Biliary tree: No intrahepatic ductal dilatation. CBD: 6 mm. MPV: 9 mm Spleen: Normal size and echogenicity. Pancreas: Not well-seen. Right kidney: 11.6 x 5.3 x 4.9 cm. Normalechogenicity.Left kidney: 12.2 x 5.8 x 5.2 cm. Normal echogenicity. No ascites is present in the abdomen. The visualized abdominal aorta is normal in caliber. The IVC and Hepatic veins are patent. Impression: Hepatic steatosis. The liver is prominent in size. Previous cholecystectomy. Signed: Weston Garcia MDReport Verified Date/Time: 09/14/2019 04:05:19 MAGNESIUM 2019-09-13 07:47:00 Test Item Value Reference Range Interpretation Comments MAGNESIUM (BEAKER) (test code = 1.7 mg/dL 1.6-2.6 627) BASIC METABOLIC [id number] 07:47:00 Test Item Value Reference Range Interpretation Comments SODIUM (BEAKER) 132 meq/L 136-145 L (test code = 381) POTASSIUM (BEAKER) 3.3 meq/L 3.5-5.1 L (test code = 379) CHLORIDE (BEAKER) 96 meq/L 98-107 L (test code = 382) CO2 (BEAKER) (test 15 meq/L 22-29 L code = 355) BLOOD UREA NITROGEN 3 mg/dL 7-21 L (BEAKER) (test code = 354) CREATININE (BEAKER) 0.66 mg/dL 0.57-1.25 (test code = 358) GLUCOSE RANDOM 96 mg/dL 70-105 (BEAKER) (test code = 652) CALCIUM (BEAKER) 8.3 mg/dL 8.4-10.2 L (test code = 697) EGFR (BEAKER) (test 95 mL/min/1.73 ESTIMA LUIS GFR IS code = 1092) sq m NOT ACCURATE CREATININE CLEARANCE IN PREDICTING GLOMERULAR FILTRATION RATE . ESTIMATED GFR I S NOT APPLICABLE FOR DIALYSIS PATIEN TS. HEPATIC FUNCTION [id number] 07:47:00 Test Item Value Reference Range Interpretation Comments TOTAL PROTEIN (BEAKER) (test code = 7.4 gm/dL 6.0-8.3 770) ALBUMIN (BEAKER) (test code = 1145) 3.9 g/dL 3.5-5.0 BILIRUBIN TOTAL (BEAKER) (test code 1.6 mg/dL 0.2-1.2 H = 377) BILIRUBIN DIRECT (BEAKER) (test 1.1 mg/dL 0.1-0.5 H code = 706) ALKALINE PHOSPHATASE (BEAKER) (test 210 U/L 40-150 H code = 346) AST (SGOT) (BEAKER) (test code = 195 U/L 5-34 H 353) ALT (SGPT) (BEAKER) (test code = 55 U/L 6-55 347) [id number] 07:47:00 Test Item Value Reference Range Interpretation Comments LIPASE (BEAKER) (test code = 749) 186 U/L 8-78 H Hepatitis panel, [id number] 07:29:00 Test Item Value Reference Range Interpretation Comments Hep A IgM (test code = 37879-4) Nonreactive Nonreactive Hep B C IgM (test code = 36479-6) Nonreactive Nonreactive Hepatitis C Ab (test code = Nonreactive Nonreactive 62548-8) HBsAg Screen (test code = 5195-3) Nonreactive Nonreactive Lab Interpretation (test code = Normal 69137-0) [facility], [id number] 07:29:00 Test Item Value Reference Range Interpretation Comments HEPATITIS A IGM ANTIBODY (BEAKER) Nonreactive Nonreactive (test code = 498) HEPATITIS B CORE IGM ANTIBODY Nonreactive Nonreactive (BEAKER) (test code = 645) HEPATITIS C ANTIBODY (BEAKER) Nonreactive Nonreactive (test code = 367) HEPATITIS B SURFACE ANTIGEN (2) Nonreactive Nonreactive (BEAKER) (test code = 2585) CBC W/PLT COUNT & AUTO [id number] 06:45:00 Test Item Value Reference Range Interpretation Comments WHITE BLOOD CELL COUNT (BEAKER) 7.6 K/ L 3.5-10.5 (test code = 775) RED BLOOD CELL COUNT (BEAKER) 3.93 M/ L 3.93-5.22 (test code = 761) HEMOGLOBIN (BEAKER) (test code = 13.1 GM/DL 11.2-15.7 410) HEMATOCRIT (BEAKER) (test code = 38.8 % 34.1-44.9 411) MEAN CORPUSCULAR VOLUME (BEAKER) 98.7 fL 79.4-94.8 H (test code = 753) MEAN CORPUSCULAR HEMOGLOBIN 33.3 pg 25.6-32.2 H (BEAKER) (test code = 751) MEAN CORPUSCULAR HEMOGLOBIN CONC 33.8 GM/DL 32.2-35.5 (BEAKER) (test code = 752) RED CELL DISTRIBUTION WIDTH 15.7 % 11.7-14.4 H (BEAKER) (test code = 412) PLATELET COUNT (BEAKER) (test 169 K/CU MM 150-450 code = 756) MEAN PLATELET VOLUME (BEAKER) 10.8 fL 9.4-12.3 (test code = 754) NUCLEATED RED BLOOD CELLS 0 /100 WBC 0-0 (BEAKER) (test code = 413) NEUTROPHILS RELATIVE PERCENT 62 % (BEAKER) (test code = 429) LYMPHOCYTES RELATIVE PERCENT 23 % (BEAKER) (test code = 430) MONOCYTES RELATIVE PERCENT 13 % (BEAKER) (test code = 431) EOSINOPHILS RELATIVE PERCENT 1 % (BEAKER) (test code = 432) BASOPHILS RELATIVE PERCENT 1 % (BEAKER) (test code = 437) NEUTROPHILS ABSOLUTE COUNT 4.72 K/ L 1.56-6.13 (BEAKER) (test code = 670) LYMPHOCYTES ABSOLUTE COUNT 1.73 K/ L 1.18-3.74 (BEAKER) (test code = 414) MONOCYTES ABSOLUTE COUNT (BEAKER) 0.95 K/ L 0.24-0.36 H (test code = 415) EOSINOPHILS ABSOLUTE COUNT 0.05 K/ L 0.04-0.36 (BEAKER) (test code = 416) BASOPHILS ABSOLUTE COUNT (BEAKER) 0.10 K/ L 0.01-0.08 H (test code = 417) IMMATURE GRANULOCYTES-RELATIVE 0 % 0-1 PERCENT (BEAKER) (test code = 9741)
[2020-07-06 01:56] LABS: Absolute Lymphocytes (CBC) 3.3 K/uL (0.7-4.9); Basophils % 0.8 % (0-1.3); Hematocrit 40.5 % (36.0-45.0); Lymphocytes % 42.4 % (15.3-44.8); MPV 9.4 fL (7.6-11.3); RBC Red Blood Cell Count 4.65 M/uL (3.86-4.86)
[2020-07-06] MEDS ORDERED: ONDANSETRON 4 MG/2 ML VIAL ONE (02:05)
[2020-07-06] MEDS ORDERED: MORPHINE 4 MG/ML SYR ONE ×2 (02:05→03:21)
[2020-07-06] MEDS ORDERED: NA CHLORIDE 0.9% 1,000 ML ONE (02:05)
[2020-07-06 02:09] LABS: Albumin 3.7 g/dL (3.4-5.0); Bilirubin Direct 0.1 mg/dL (0-0.2); Bilirubin Total 0.4 mg/dL (0.2-1.0); Potassium 3.8 mmol/L (3.5-5.1); Protein, Total 7.9 g/dL (6.4-8.2)
--- NOTE | 2020-07-06 04:49 | EDPHYS ---
Physician Documentation [facility] Name: Charmaine Riley Age: 50 yrs Sex: Female : 1970 Arrival Date: 07/06/2020 Time: 00:48 Bed 6 Private MD: ED Physician Andre Suarez HPI: 07/06 02:45 This 50 yrs old Female presents to ER via Ambulatory with complaints of Low mh7 Back Pain. 02:45 The patient complains of pain in the right flank. The pain radiates to the abdomen. mh7 Onset: The symptoms/episode began/occurred yesterday. Modifying factors: The symptoms are alleviated by nothing. the symptoms are aggravated by movement. Associated signs and symptoms: Pertinent positives: nausea, Pertinent negatives: diarrhea, dizziness, dysuria, fever, urinary frequency, headache, hematuria, pain radiating to the lower extremities, vomiting. Severity of pain: At its worst the pain was moderate today, in the emergency department the pain is unchanged. 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 - Social history:: Smoking status: Patient denies any tobacco usage or history of. ROS: 02:45 Constitutional: Negative for fever, chills, and weight loss, Eyes: Negative for injury, mh7 pain, redness, and discharge, ENT: Negative for injury, pain, and discharge, Neck: Negative for injury, pain, and swelling, Cardiovascular: Negative for chest pain, palpitations, and edema, Respiratory: Negative for shortness of breath, cough, wheezing, and pleuritic chest pain, : Negative for injury, bleeding, discharge, and swelling, MS/Extremity: Negative for injury and deformity, Skin: Negative for injury, rash, and discoloration, Neuro: Negative for headache, weakness, numbness, tingling, and seizure, Psych: Negative for depression, anxiety, suicide ideation, homicidal ideation, and hallucinations, Allergy/Immunology: Negative for hives, rash, and allergies, Endocrine: Negative for neck swelling, polydipsia, polyuria, polyphagia, and marked weight changes, Hematologic/Lymphatic: Negative for swollen nodes, abnormal bleeding, and unusual bruising. Exam: 02:45 Constitutional: This is a well developed, well nourished patient who is awake, alert, mh7 and in no acute distress. Head/Face: Normocephalic, atraumatic. Neck: Trachea midline, no thyromegaly or masses palpated, and no cervical lymphadenopathy. Supple, full range of motion without nuchal rigidity, or vertebral point tenderness. No Meningismus. Chest/axilla: Normal chest wall appearance and motion. Nontender with no deformity. No lesions are appreciated. Cardiovascular: Regular rate and rhythm with a normal S1 and S2. No gallops, murmurs, or rubs. Normal PMI, no JVD. No pulse deficits. Respiratory: Lungs have equal breath sounds bilaterally, clear to auscultation and percussion. No rales, rhonchi or wheezes noted. No increased work of breathing, no retractions or nasal flaring. 02:45 Skin: Warm, dry with normal turgor. Normal color with no rashes, no lesions, and no evidence of cellulitis. MS/ Extremity: Pulses equal, no cyanosis. Neurovascular intact. Full, normal range of motion. Neuro: Awake and alert, GCS 15, oriented to person, place, time, and situation. Cranial nerves II-XII grossly intact. Motor strength 5/5 in all extremities. Sensory grossly intact. Cerebellar exam normal. Normal gait. Psych: Awake, alert, with orientation to person, place and time. Behavior, mood, and affect are within normal limits. 02:45 Abdomen/GI: Inspection: abdomen appears normal, Bowel sounds: normal, in all quadrants, Palpation: mild abdominal tenderness, in the suprapubic area, Rectal exam: the exam is deferred, because of patient request, Indicators: McBurney's point is not tender, Gibbons's sign is negative, Rovsing's sign is negative, Obturator sign is negative, Psoas sign is negative, Liver: no appreciated palpable abnormalities, Hernia: not appreciated. 02:45 Back: pain, is absent, ROM is normal, normal spinal alignment noted, CVA tenderness, that is mild, is noted on the right, vertebral tenderness, is not appreciated, muscle spasm, is not present. Vital Signs: 01:19 BP 119 / 73; Pulse 84; Resp 18; Temp 98.3(TE); Pulse Ox 100% on R/A; Weight 91.63 kg lp1 (R); Height 5 ft. 10 in. (177.80 cm); Pain 10/10; 02:15 BP 100 / 66; Pulse 79; Resp 16; Pulse Ox 99% on R/A; jb4 03:30 BP 113 / 76; Pulse 81; Resp 16; Pulse Ox 97% on R/A; jb4 04:00 BP 109 / 66; Pulse 68; Resp 16; Pulse Ox 99% on R/A; vc 04:45 BP 115 / 76; Pulse 64; Resp 16; Pulse Ox 100% on R/A; vc 01:19 Body Mass Index 28.98 (91.63 kg, 177.80 cm) lp1 MDM: 02:29 Patient medically screened. mh7 04:46 Differential diagnosis: nephrolithiasis, pyelonephritis, UTI. Differential diagnosis: mh7 Flank Pain. Data reviewed: vital signs, nurses notes. Data reviewed: lab test result(s), CBC, electrolytes, urinalysis, radiologic studies, CT scan. Data interpreted: Pulse oximetry: on room air is 99 %. Interpretation: normal. Counseling: I had a detailed discussion with the patient and/or guardian regarding: the historical points, exam findings, and any diagnostic results supporting the discharge/admit diagnosis, lab results, radiology results, the need for outpatient follow up, to return to the emergency department if symptoms worsen or persist or if there are any questions or concerns that arise at home. Response to treatment: the patient's symptoms have markedly improved after treatment. 07/06 01:45 Order name: Basic Metabolic Panel; Complete Time: [facility] 07/06 01:45 Order name: CBC with Diff; Complete Time: 07/06 01:45 Order name: Hepatic Function; Complete Time: [facility] 07/06 01:45 Order name: Lipase; Complete Time: 07/06 02:31 Order name: CT Abd/Pelvis - IV Contrast Only mh7 08/20 01:45 Order name: IV Saline Lock; Complete Time: 01:45 [facility] 07/06 01:45 Order name: Labs collected and sent; Complete Time: :45 [facility] 07/06 02:30 Order name: Urine Dipstick-Ancillary (obtain specimen); Complete Time: 03:23 [facility] Administered Medications: 01:58 Drug: Zofran (Ondansetron) 4 mg Route: IVP; Site: right antecubital; [facility] 02:30 Follow up: Response: No adverse reaction; Nausea is decreased [facility] 01:58 Drug: NS 0.9% 1000 ml Route: IV; Rate: 1 bolus; Site: right antecubital; [facility] 02:00 Drug: morphine 4 mg Route: IVP; Site: right antecubital; [facility] 02:30 Follow up: Response: No adverse reaction; Pain is decreased; RASS: Alert and Calm (0) [facility] 03:00 Drug: morphine 4 mg Route: IVP; Site: right antecubital; [facility] 03:30 Follow up: Response: No adverse reaction; Pain is decreased; RASS: Alert and Calm (0) [facility] Disposition: 06:39 Co-signature as Attending Physician, Andre Suarez MD. [facility] Disposition: 07/06/20 04:48 Discharged to Home. Impression: Flank Pain. - Condition is Stable. - Discharge Instructions: Flank Pain, [id number]. - Prescriptions for Zofran ODT 4 mg Oral tablet,disintegrating - place 1 tablet by TRANSLINGUAL route every 8 hours As needed; 8 tablet. - Medication Reconciliation Form, Thank You Letter, Antibiotic Education, Prescription Opioid Use form. - Follow up: Private Physician; When: 1 - 2 days; Reason: Worsening of condition, Recheck today's complaints, Continuance of care, Re-evaluation by your physician. Follow up: Jalyn Vargas MD; When: 1 - 2 days; Reason: Worsening of condition, Recheck today's complaints. - Problem is new. - Symptoms have improved. Signatures: Dispatcher [employer] EDMS Maylin Ramos RN RN lp1 Norris Martinez RN RN jb4 Keysha Vargas RN RN vc Holmes, Maurice, MD MD [facility] Corrections: (The following items were deleted from the chart) 03:23 02:30 Urine Test ordered. mh7 jb4 05:08 04:48 07/06/2020 04:48 Discharged to Home. Impression: Flank Pain. Condition is Stable. vc Forms are Medication Reconciliation Form, Thank You Letter, Antibiotic Education, Prescription Opioid Use. Follow up: Private Physician; When: 1 - 2 days; Reason: Worsening of condition, Recheck today's complaints, Continuance of care, Re-evaluation by your physician. Follow up: Jalyn Vargas; When: 1 - 2 days; Reason: Worsening of condition, Recheck today's complaints. Problem is new. Symptoms have improved. mh7
--- NOTE | 2020-07-06 04:49 | ER ---
Nurse's Notes [facility] Name: Charmaine Riley Age: 50 yrs Sex: Female : 1970 Arrival Date: 07/06/2020 Time: 00:48 Bed 6 Private MD: Diagnosis: Flank Pain Presentation: 07/06 01:19 Chief complaint: Patient states: Low back pain that began yesterday, worsening; States lp1 pain with urination today; Denies any fever. Coronavirus screen: Client denies travel out of the [place] in the last 14 days. At this time, the client does not indicate any symptoms associated with coronavirus-19. Ebola Screen: No symptoms or risks identified at this time. Initial Sepsis Screen: Does the patient meet any 2 criteria? No. Patient's initial sepsis screen is negative. Does the patient have a suspected source of infection? No. Patient's initial sepsis screen is negative. Risk Assessment: Do you want to hurt yourself or someone else? Patient reports no desire to harm self or others. Onset of symptoms was July 05, 2020. 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 - Social history:: Smoking status: Patient denies any tobacco usage or history of. Screenin:40 Abuse screen: Denies threats or abuse. Nutritional screening: No deficits noted. jb4 Tuberculosis screening: No symptoms or risk factors identified. Fall Risk None identified. Assessment: 01:40 General: Appears in no apparent distress. uncomfortable, Behavior is calm, cooperative, jb4 appropriate for age. Pain: Complains of pain in right low back Pain radiates to left low back and right lower quadrant Pain currently is 9 out of 10 on a pain scale. Quality of pain is described as aching, dull, Pain began 1 day ago. Is continuous. Neuro: Level of Consciousness is awake, alert, obeys commands, Oriented to person, place, time, situation. Cardiovascular: Patient's skin is warm and dry. Respiratory: Airway is patent Respiratory effort is even, unlabored, Respiratory pattern is regular, symmetrical. GI: No signs and/or symptoms were reported involving the gastrointestinal system. : No signs and/or symptoms were reported regarding the genitourinary system. EENT: No signs and/or symptoms were reported regarding the EENT system. Derm: Skin is intact, Skin is pink, warm \T\ dry. Musculoskeletal: Circulation, motion, and sensation intact. Range of motion: intact in all extremities. 03:00 Reassessment: Patient appears in no apparent distress at this time. Patient and/or jb4 family updated on plan of care and expected duration. Pain level reassessed. Patient is alert, oriented x 3, equal unlabored respirations, skin warm/dry/pink. 03:45 Reassessment: Patient appears in no apparent distress at this time. Patient and/or jb4 family updated on plan of care and expected duration. Pain level reassessed. Patient is alert, oriented x 3, equal unlabored respirations, skin warm/dry/pink. Patient states feeling better. 04:51 Reassessment: Patient appears in no apparent distress at this time. Patient and/or vc family updated on plan of care and expected duration. Pain level reassessed. Patient is alert, oriented x 3, equal unlabored respirations, skin warm/dry/pink. Patient states feeling better. Patient states symptoms have improved. Vital Signs: 01:19 BP 119 / 73; Pulse 84; Resp 18; Temp 98.3(TE); Pulse Ox 100% on R/A; Weight 91.63 kg lp1 (R); Height 5 ft. 10 in. (177.80 cm); Pain 10/10; 02:15 BP 100 / 66; Pulse 79; Resp 16; Pulse Ox 99% on R/A; jb4 03:30 BP 113 / 76; Pulse 81; Resp 16; Pulse Ox 97% on R/A; jb4 04:00 BP 109 / 66; Pulse 68; Resp 16; Pulse Ox 99% on R/A; vc 04:45 BP 115 / 76; Pulse 64; Resp 16; Pulse Ox 100% on R/A; vc 01:19 Body Mass Index 28.98 (91.63 kg, 177.80 cm) lp1 ED Course: 00:48 Patient arrived in ED. cl3 01:20 Triage completed. lp1 01:20 Arm band placed on. lp1 01:40 Patient has correct armband on for positive identification. Bed in low position. Call jb4 light in reach. Side rails up X 1. Pulse ox on. NIBP on. 01:40 Initial lab(s) drawn, by me, sent to lab. Inserted saline lock: 20 gauge in right jb4 antecubital area, using aseptic technique. Blood collected. 01:45 Norris Martinez, RN is Primary Nurse. [facility] 01:51 Andre Suarez MD is Attending Physician. [facility] 03:24 CT Abd/Pelvis - IV Contrast Only In Process Unspecified. EDMS 04:47 Jalyn Vargas MD is Referral Physician. [facility] 04:52 No provider procedures requiring assistance completed. IV discontinued, intact, vc bleeding controlled, No redness/swelling at site. Pressure dressing applied. Administered Medications: 01:58 Drug: Zofran (Ondansetron) 4 mg Route: IVP; Site: right antecubital; 4 02:30 Follow up: Response: No adverse reaction; Nausea is decreased jb4 01:58 Drug: NS 0.9% 1000 ml Route: IV; Rate: 1 bolus; Site: right antecubital; 4 02:00 Drug: morphine 4 mg Route: IVP; Site: right antecubital; [facility] 02:30 Follow up: Response: No adverse reaction; Pain is decreased; RASS: Alert and Calm (0) [facility] 03:00 Drug: morphine 4 mg Route: IVP; Site: right antecubital; jb4 03:30 Follow up: Response: No adverse reaction; Pain is decreased; RASS: Alert and Calm (0) [facility] Outcome: 04:48 Discharge ordered by . [facility] 05:08 Discharged to home via wheelchair. vc 05:08 Condition: good 05:08 Discharge instructions given to patient, Instructed on discharge instructions, follow up and referral plans. medication usage, Demonstrated understanding of instructions, follow-up care, medications, Prescriptions given X 1. 05:08 Patient left the ED. vc Signatures: Dispatcher [employer] EDMaylin Martin RN RN lp1 Norris Martinez RN RN jb4 Judy Donovan cl3 Keysha Vargas RN RN Andre Page MD MD mh7
[2020-07-06 06:28] VITALS: TEMP 98.3
[2020-07-06 06:33] VITALS: BP 115/76; O2SAT 100
--- NOTE | 2020-07-06 15:14 | RAD REPORT ---
EXAM DESCRIPTION: CT abdomen and pelvis with IV contrast CLINICAL HISTORY: 50-year-old female with abdominal pain TECHNIQUE: Axial CT imaging of the abdomen and pelvis was performed following the administration of intravenous contrast.. Oral contrast was not administered. Sagittal and coronal reconstructed image s were then performed. The CT study is performed according to ALARA (as low as reasonably achievabl e) or ALARA/IMAGE GENTLY, with automatic adjustment of mA and/or kV according to patient size. Performed on: 07/06/2020 at 3:02 AM. COMPARISON: Prior CT abdomen and pelvis with IV contrast performed on 08/09/2019 FINDINGS: Lung bases: The lung bases are clear. Liver: The liver is normal in size and configuration. No focal hepatic abnormalities are identified. Liver attenuation is within normal limits. Spleen: The spleen is normal is size, configuration and attenuation. Gallbladder and bile duct: The gallbladder is surgically absent. There is no biliary ductal dilatat ion. Pancreas: The pancreas is grossly normal in size and configuration. Adrenal Glands: The adrenal glands are normal in size and configuration. Kidneys: The kidneys are normal in size and configuration. There is no evidence of hydronephrosis. Th ere is no evidence of nephrolithiasis. No definite solid or cystic renal mass lesions are identified. Stomach: There are remote postsurgical changes consistent with prior gastric bypass surgery. There is no definite hiatal hernia. There are also postsurgical changes consistent with prior ventral hernia repair using mesh. Bowel: The bowel gas pattern is non specific and non obstructive. Appendix: There is no CT evidence of acute appendicitis. The appendix is not well visualized on this study and may be surgically absent. Free air: There is no evidence of free air. Free fluid: There is no evidence of free fluid. Vasculature: The aorta is normal in caliber and contour. The inferior vena cava is grossly unremarkab le. Lymphadenopathy: No pathologic lymphadenopathy is identified. Bladder: The bladder is well distended and smooth in contour. Reproductive: The uterus is surgically absent. Bones: No acute osseous abnormalities are identified. There are old bilateral rib fractures. Soft tissues: No focal soft tissue abnormalities are identified. IMPRESSION: 1. No evidence of acute intra-abdominal or intrapelvic pathology. 2. Remote gastric bypass surgery and remote ventral hernia repair using mesh. 3. Prior cholecystectomy and hysterectomy. Electronically signed by: Natasha Yanes DO 07/06/2020 3:50 AM CDT Due to temporary technical issues with the PACS/Fluency reporting system, reports are being signed by the in house radiologist without review as a courtesy to ensure prompt reporting. The interpreting r adiologist is fully responsible for the content of the report.
== END 2020-07-06 05:08 | disposition home or self-care (01) ==
LOC: ER 00:47
DX: R10.9 Unspecified abdominal pain (principal); E03.9 Hypothyroidism, unspecified; Z98.84 Bariatric surgery status; Z88.2 Allergy status to sulfonamides; Z88.5 Allergy status to narcotic agent
CPT/HCPCS: 36415; 74177; 80048; 80076; 83690; 85025; 96374; 96375; 99284; J2405; J7030; Q9967